=== PATIENT | female | born 1975 | race Caucasian/White ===

== ENCOUNTER 2016-06-23 12:12 | Emergency (ER) | payer BC ==
[2016-06-23] MEDS ORDERED: RX INFO: IV CONTRAST WAS GIVEN 1 EACH MISC MISCELLANE PRN (14:14)
[2016-06-23] MEDS ORDERED: SODIUM CHLORIDE 0.9% 1,000 ML IV ONE (14:14)
--- NOTE | 2016-06-23 14:21 | ED ---
General Adult HPI - General Chief complaint: Abdominal Pain Stated complaint: Abd Pain,Blood in Stool, Dizzy Time Seen by Provider: 06/23/16 14:03 Source: patient, family, RN notes reviewed Mode of arrival: wheelchair Limitations: no limitations - History of Present Illness Initial comments: 40-year-old female presenting for abdominal pain and blood in her stool. Patient states she woke up last night with cramping in her lower abdominal. She states she felt like she had to have a bowel movement, and had a small normal bowel movement at that time. This morning she states she woke up and had return of abdominal cramping. She states she went to the bathroom again and then had a bowel movement with some blood mixed in with it. She then had another bowel movement with a significant amount of bright red blood. She states she's had several other short episodes of lower abdominal cramping since this morning. She has had 2 prior C-sections and partial hysterectomy with one ovary left. She also had lysis of adhesions during her hysterectomy. She denies history of small bowel obstruction. She states she's had some nausea associated but no vomiting. She denies any fevers or chills. She denies any chest pain or shortness of breath. - Related Data Home Medications Medication Instructions Recorded Confirmed Triamterene-Hctz 37.5-25Mg 1 tab PO DAILY 09/13/15 06/23/16 [Maxzide 37.5-25] Citalopram Hydrobromide [CeleXA] 20 mg PO DAILY 06/23/16 06/23/16 Doxycycline Hyclate [Targadox] 50 mg PO BID 06/23/16 06/23/16 Phentermine HCl [Adipex-P] 18.75 mg PO QAM 06/23/16 06/23/16 Previous Rx's Medication Instructions Recorded Dicyclomine [Bentyl] 20 mg PO QID PRN #16 tablet 06/23/16 Allergies Allergy/AdvReac Type Severity Reaction Status Date / Time azithromycin AdvReac Flushed/Sergo Verified 06/23/16 14:03 nt Review of Systems ROS Statement: Those systems with pertinent positive or pertinent negative responses have been documented in the HPI. ROS Other: All systems not noted in ROS Statement are negative. Past Medical History Past Medical History: Hypertension Additional Past Medical History / Comment(s): childhood seizures History of Any Multi-Drug Resistant Organisms: None Reported Past Surgical History: Section, Hysterectomy, Tubal Ligation Past Psychological History: No Psychological Hx Reported Smoking Status: Never smoker Past Alcohol Use History: None Reported Past Drug Use History: None Reported General Exam - General Exam Comments Initial Comments: General: Awake and Alert. No acute distress. Does not appear acutely ill. Obese. Eyes: MARY, EOM intact. No nystagmus. No scleral icterus. HENT: Atraumatic, normocephalic. Mucous membranes moist. Trachea midline. Neck: The neck is supple, there is no tenderness or JVD. Cardiovascular: Regular rate and rhythm. No murmur, rub, or gallop is appreciated. Distal pulses intact. Respiratory: Lungs are clear to auscultation bilaterally. No wheezes, rales, rhonchi. No respiratory distress. Gastrointestinal: Soft, mild lower abdominal tenderness. No rebound or guarding. Non-distended. No masses or organomegaly noted. No CVA tenderness. Genitourinary: External rectal exam performed without evidence of fissure or hemorrhoid. There is no gross blood. Nurse Rosa Isela present for exam. Musculoskeletal: No tenderness. Normal ROM. No gross deformity. No strength deficits. Neurological: A&Ox3. CN II-XII grossly intact, There are no obvious motor or sensory deficits. Coordination appears grossly intact. Speech is normal. Skin: Skin is warm and dry and no rashes or lesions are noted. Psychiatric: Cooperative, appropriate mood & affect, normal judgment. Limitations: no limitations Course Vital Signs 06/23/16 12:15 Temperature 98.1 F Pulse Rate 84 Respiratory 20 Rate Blood Pressure 132/82 O2 Sat by Pulse 99 Oximetry Medical Decision Making - Medical Decision Making 40-year-old female presenting for abdominal pain and bright red blood per rectum. No active pain or symptoms on initial examination. Declines pain medications at this time. CT abdomen and pelvis with left ovarian cysts and hepatic cyst noted. No acute process otherwise. Lab work with stable CBC, stable BMP. LFTs within normal limits. Lipase negative. UA without evidence of infection. Patient reevaluated, remained stable. Updated on results and imaging. Discussed likely benign hepatic cyst and follow-up with PCP for further imaging such as ultrasound. Discussed presence of her left ovary and evidence of cysts. Discussed this as possible cause of her symptoms today. Patient was offered ultrasound for further evaluation but declines. Discussed lower suspicion of ovarian torsion at this time. Patient with no active symptoms during her course in the emergency room. Rx for Bentyl provided in the event of return of symptoms. Discussed bright red blood per rectum and close follow- up with PCP and GI, referral provided. Discussed further outpatient management and need for colonoscopy. Discussed concerning signs symptoms for immediate return to the ED. Patient is agreeable with plan and discharge home. - Lab Data Result diagrams: 06/23/16 13:50 06/23/16 13:50 Lab Results 06/23/16 06/23/16 06/23/16 Range/Units 13:50 13:50 13:50 WBC 8.6 (3.8-10.6) k/uL RBC 5.33 (3.80-5.40) m/uL Hgb 15.8 (11.4-16.0) gm/dL Hct 45.3 (34.0-46.0) % MCV 85.0 (80.0-100.0) fL MCH 29.6 (25.0-35.0) pg MCHC 34.8 (31.0-37.0) g/dL RDW 12.5 (11.5-15.5) % Plt Count 257 (150-450) k/uL Neutrophils % 67 % Lymphocytes % 24 % Monocytes % 6 % Eosinophils % 2 % Basophils % 1 % Neutrophils # 5.7 (1.3-7.7) k/uL Lymphocytes # 2.0 (1.0-4.8) k/uL Monocytes # 0.5 (0-1.0) k/uL Eosinophils # 0.2 (0-0.7) k/uL Basophils # 0.1 (0-0.2) k/uL Sodium 139 (137-145) mmol/L Potassium 4.5 (3.5-5.1) mmol/L Chloride 103 (98-107) mmol/L Carbon Dioxide 24 (22-30) mmol/L Anion Gap 12 mmol/L BUN 17 (7-17) mg/dL Creatinine 0.80 (0.52-1.04) mg/dL Est GFR (MDRD) Af Amer >60 (>60 ml/min/1.73 sqM) Est GFR (MDRD) Non-Af >60 (>60 ml/min/1.73 sqM) Glucose 88 (74-99) mg/dL Calcium 10.3 H (8.4-10.2) mg/dL Magnesium 2.0 (1.6-2.3) mg/dL Total Bilirubin 0.5 (0.2-1.3) mg/dL AST 22 (14-36) U/L ALT 39 (9-52) U/L Alkaline Phosphatase 95 (38-126) U/L Total Protein 7.3 (6.3-8.2) g/dL Albumin 4.5 (3.5-5.0) g/dL Lipase 205 (23-300) U/L Urine Color Yellow Urine Appearance Clear (Clear) Urine pH 6.0 (5.0-8.0) Ur Specific [place] 1.013 (1.001-1.035) Urine Protein Negative (Negative) Urine Glucose (UA) Negative (Negative) Urine Ketones Negative (Negative) Urine Blood Negative (Negative) Urine Nitrite Negative (Negative) Urine Bilirubin Negative (Negative) Urine Urobilinogen <2.0 (<2.0) mg/dL Ur Leukocyte Esterase Negative (Negative) - Radiology Data Radiology results: report reviewed, image reviewed Disposition Clinical Impression: Nonspecific abdominal pain, Ovarian cyst, Rectal bleeding Disposition: HOME SELF-CARE Condition: Stable Instructions: Ovarian Cyst (ED), Rectal Bleeding (ED), Abdominal Pain (ED) Prescriptions: Dicyclomine [Bentyl] 20 mg PO QID PRN #16 tablet PRN Reason: abdominal pain Referrals: Janice Giraldo DO [Primary Care Provider] - 1-2 days Tez Bowling MD [STAFF PHYSICIAN] - 1-2 days Time of Disposition: 15:44
[2016-06-23 14:31] LABS: Appearance,Urine Clear (Clear); Bilirubin,Urine Negative (Negative); Glucose,Urine (UA) Negative (Negative); Ketones,Urine Negative (Negative); Leukocyte Esterase,Urine Negative (Negative); Nitrite,Urine Negative (Negative); Protein,Urine Negative (Negative); Specific Gravity,Urine 1.013 (1.001-1.035); UA Billing (MACRO vs. MICRO) CHEM; Urobilinogen,Urine <2.0 mg/dL (<2.0)
[2016-06-23 14:32] LABS: Basophils # (A) 0.1 k/uL (0-0.2); Basophils % (A) 1 %; CH 29.5; CHCM 34.9; Eosinophils # (A) 0.2 k/uL (0-0.7); Eosinophils % (A) 2 %; HCT 45.3 % (34.0-46.0); HDW 2.73; HGB 15.8 gm/dL (11.4-16.0); Luc # (Auto) 0.11; Luc % (Auto) 1; Lymphocytes % (A) 24 %; MCH 29.6 pg (25.0-35.0); MCHC 34.8 g/dL (31.0-37.0); Mean Platelet Volume 7.5; Monocytes # (A) 0.5 k/uL (0-1.0); Monocytes % (A) 6 %; Neutrophils # (A) 5.7 k/uL (1.3-7.7); Neutrophils % (A) 67 %; RBC 5.33 m/uL (3.80-5.40); RDW 12.5 % (11.5-15.5); WBC 8.6 k/uL (3.8-10.6); WBC (Perox) 7.97
[2016-06-23 14:43] LABS: ALT 39 U/L (9-52); AST 22 U/L (14-36); Alkaline Phosphatase 95 U/L (38-126); Anion Gap 12 mmol/L; Blood Urea Nitrogen 17 mg/dL (7-17); Calcium 10.3 mg/dL (8.4-10.2); Carbon Dioxide 24 mmol/L (22-30); Chloride 103 mmol/L (98-107); Glucose 88 mg/dL (74-99); Non-African American GFR(MDRD) >60 (>60 ml/min/1.73 sqM); Potassium 4.5 mmol/L (3.5-5.1); Sodium 139 mmol/L (137-145); Total Bilirubin 0.5 mg/dL (0.2-1.3); Total Protein 7.3 g/dL (6.3-8.2)
--- NOTE | 2016-06-23 15:12 | CT ---
EXAMINATION TYPE: CT abdomen pelvis w con DATE OF EXAM: 06/23/2016 3:01 PM COMPARISON: 09/13/2015 INDICATION: Pain, cramping DLP: 966.5 mGycm, Automated exposure control for dose reduction was used. CONTRAST: 100 mL of Omnipaque 300. Study performed without Oral Contrast TECHNIQUE: Axial images were obtained from above the diaphragm to the pubic rami in the axial plane a t 5 mm thick sections. Reconstructed images are reviewed on the computer in the coronal plane. FINDINGS: Limited CT sections are obtained the lung bases. The lung bases are clear. CT ABDOMEN: Liver: 0.5 cm hypodensities within the medial right lobe liver, too small to classify may be a small hepatic cyst. Consider evaluation with ultrasound. Spleen: Normal Pancreas: Normal Adrenal glands: The adrenal glands are normal. Gallbladder: Normal Kidneys: No masses are evident. No hydronephrosis is present. No cysts are present. Delayed images were obtained through the kidneys, which remain unremarkable. Aorta: Normal Inferior vena cava: Normal. CT PELVIS: Loops of bowel within the abdomen and pelvis are normal. There are loops of bowel which are incom pletely distended or lack oral contrast limiting their evaluation. Appendix: Normal as visualized. Urinary bladder: Normal. Genitourinary structures: Adnexal regions appear within normal limits. Some follicles may be in the r egion of the left ovary. Uterus is not identified. Osseous structures: No suspicious lytic or sclerotic lesions. IMPRESSIONS: 1. Possible small hepatic cyst in the right lobe liver. Additional evaluation with ultrasound is rec ommended. This may be a change from 09/13/2015. 2. Complex appearing left adnexa which can have small cysts. Series smaller more complex than the com parison. Pelvic ultrasound can further evaluate this finding.
[2016-06-23 16:00] VITALS: BP 136/87; PULSE 70; RESP 18; TEMP 98.5
== END 2016-06-23 16:09 | disposition home or self-care (01) ==
LOC: EC 12:12
DX: N83.202 Unspecified ovarian cyst, left side (principal); K76.89 Other specified diseases of liver; K62.5 Hemorrhage of anus and rectum; E66.9 Obesity, unspecified; Z68.30 Body mass index [BMI] 30.0-30.9, adult; Z79.899 Other long term (current) drug therapy; Z88.1 Allergy status to other antibiotic agents; Z90.710 Acquired absence of both cervix and uterus
CPT/HCPCS: 99284; 96360; 36415; 80053; 83690; 83735; 85025; 81003; 74177; Q9967

== ENCOUNTER → 2016-10-22 | Outpatient (CLI) | payer BC ==
--- NOTE | 2016-10-22 23:37 | MR ---
EXAMINATION TYPE: MR ankle RT wo con DATE OF EXAM: 10/22/2016 COMPARISON: NONE HISTORY: Rt ankle sprain x 09 Nov 2015 & July 2016, pain is lateral aspect through arch Standard multiplanar, multisequence MRI departmental protocol Multiplanar, multisequence images of the right ankle were acquired. FINDINGS: The collateral ligaments are intact. There is a small ankle joint effusion. The Achilles te ndon is intact. Plantar fascia is intact. Subtalar joint space is normal. I see no focal bone destruc tion. The medial and lateral flexor tendons of the foot are intact. There is a small Achilles calcaneal spu r. IMPRESSION: Small ankle joint effusion and could relate to minimal synovitis.
== END | disposition home or self-care (01) ==
LOC: RADMRIMAIN 19:07
PROVIDERS: ATTEND Nurse Practitioner
DX: M25.471 Effusion, right ankle (principal)

== ENCOUNTER 2018-08-12 18:24 | Emergency (ER) | payer BC ==
[2018-08-12] MEDS ORDERED: KETOROLAC 30 MG/ML 1 ML VIAL IVP STA (19:21)
[2018-08-12] MEDS ORDERED: SODIUM CHLORIDE 0.9% 500 ML 500 ML IV STA (19:21)
[2018-08-12] MEDS ORDERED: SODIUM CHLORIDE 0.9% 1,000 ML IV STA (19:21)
[2018-08-12 20:08] LABS: Basophils # (A) 0.1 k/uL (0-0.2); Basophils % (A) 1 %; Eosinophils # (A) 0.4 k/uL (0-0.7); Eosinophils % (A) 4 %; HCT 40.3 % (34.0-46.0); Lymphocytes # (A) 2.2 k/uL (1.0-4.8); Lymphocytes % (A) 26 %; MCH 29.4 pg (25.0-35.0); MCHC 34.8 g/dL (31.0-37.0); MCV 84.5 fL (80.0-100.0); Mean Platelet Volume 6.7; Monocytes # (A) 0.3 k/uL (0-1.0); Monocytes % (A) 4 %; Neutrophils # (A) 5.4 k/uL (1.3-7.7); Neutrophils % (A) 64 %; Platelet Count 269 k/uL (150-450); RBC 4.77 m/uL (3.80-5.40); RDW 13.2 % (11.5-15.5); WBC 8.5 k/uL (3.8-10.6)
[2018-08-12 20:12] LABS: Appearance,Urine Cloudy (Clear); Bilirubin,Urine Negative (Negative); Blood,Urine Negative (Negative); Color,Urine Light Yellow; Glucose,Urine (UA) Negative (Negative); Ketones,Urine Negative (Negative); Leukocyte Esterase,Urine Negative (Negative); Mucus,Urine Rare /hpf; Nitrite,Urine Negative (Negative); PH, Urine 6.5 (5.0-8.0); Protein,Urine Negative (Negative); Specific Gravity,Urine 1.014 (1.001-1.035); Squamous Epithelial Cell,Urine 8 /hpf (0-4); Urobilinogen,Urine <2.0 mg/dL (<2.0); WBC,Urine 1 /hpf (0-5)
[2018-08-12 20:19] LABS: ALT 17 U/L (9-52); AST 23 U/L (14-36); African American GFR (CKD) >90 (>60 ml/min/1.73 sqM); Albumin 3.9 g/dL (3.5-5.0); Alkaline Phosphatase 108 U/L (38-126); Amylase 57 U/L (30-110); Anion Gap 8 mmol/L; Blood Urea Nitrogen 14 mg/dL (7-17); Calcium 9.4 mg/dL (8.4-10.2); Carbon Dioxide 28 mmol/L (22-30); Chloride 100 mmol/L (98-107); Glucose 129 mg/dL (74-99); Lipase 182 U/L (23-300); Sodium 136 mmol/L (137-145); Total Bilirubin 0.4 mg/dL (0.2-1.3); Total Protein 6.5 g/dL (6.3-8.2)
--- NOTE | 2018-08-12 20:21 | CT ---
EXAMINATION TYPE: CT abdomen pelvis wo con DATE OF EXAM: 08/12/2018 COMPARISON: 06/23/2016 HISTORY: right flank pain. hx of stones. CT DLP: 952.4 mGycm Automated exposure control for dose reduction was used. TECHNIQUE: Helical acquisition of images was performed from the lung bases through the pelvis. FINDINGS: Lung bases are clear. There is no pleural effusion. Heart size is normal. There is no pericardial eff usion. Stomach appears normal. Liver spleen pancreas appear normal. Bile ducts are not dilated. There is 1.5 cm single calcified gallstone. There is no adrenal mass. Kidneys show satisfactory contrast opacification. There is no hydronephrosi s. There is no retroperitoneal adenopathy. Bladder distends smoothly. There is no inguinal hernia. Th ere is no free fluid in the pelvis. Uterus is anteverted. There is no evidence of a pelvic mass. Appendix appears normal. There is no mesenteric edema. There is no ascites or free air. There is smal l umbilical hernia that contains fat. There is no evidence of a bowel obstruction. Lumbar vertebra [place] ve normal spacing and alignment. IMPRESSION: THERE IS A SINGLE CALCIFIED GALLSTONE THAT IS A CHANGE COMPARED TO OLD EXAM. OTHERWISE NEGATIVE EXAM. NO EVIDENCE OF RENAL STONE OR OBSTRUCTION. NORMAL APPENDIX.
[2018-08-12 20:26] LABS: Potassium 3.5 mmol/L (3.5-5.1)
--- NOTE | 2018-08-12 20:35 | ED ---
Abdominal Pain HPI - General Chief Complaint: Abdominal Pain Stated Complaint: Kidney Stone Time Seen by Provider: 08/12/18 19:02 Source: patient Mode of arrival: ambulatory Limitations: no limitations - History of Present Illness Initial Comments: 42-year-old female patient presents to the emergency department today for evaluation of right flank pain. Patient states that starting last Tuesday she developed pain to the right flank that is sharp in nature and radiating around to the right lower quadrant abdomen. Patient states that she has had kidney stones before and this pain felt similar. She did see her primary care physician on Tuesday was diagnosed with kidney stone when her urine showed red blood cells, she was given Flomax. Patient states that the pain has persisted throughout the week. States that today the pain became worse and change to an intense pressure type pain. She denies any nausea or vomiting with this. Denies any fever or chills. States that she has had decreased urine output today. States she has been taking ibuprofen at home for pain relief. Only abdominal surgery was hysterectomy. Patient denies any recent rash, shortness breath, chest pain, diarrhea, constipation, back pain, numbness, tingling, dizziness, weakness, headache, visual changes, or any other complaints. - Related Data Home Medications Medication Instructions Recorded Confirmed Citalopram Hydrobromide [CeleXA] 20 mg PO DAILY 06/23/16 08/12/18 Tamsulosin [Flomax] 0.4 mg PO DAILY 08/12/18 08/12/18 Triamterene-Hctz 37.5-25Mg 1 cap PO DAILY 08/12/18 08/12/18 [Dyazide 37.5-25 Capsule] cycloSPORINE 0.05% OPHTH SOLN 1 drop BOTH EYES BID 08/12/18 08/12/18 [Restasis] Previous Rx's Medication Instructions Recorded Ibuprofen 800 mg PO TID PRN #30 tablet 08/12/18 Allergies Allergy/AdvReac Type Severity Reaction Status Date / Time azithromycin AdvReac Flushed/Sergo Verified 08/12/18 20:26 nt Review of Systems ROS Statement: Those systems with pertinent positive or pertinent negative responses have been documented in the HPI. ROS Other: All systems not noted in ROS Statement are negative. Past Medical History Past Medical History: Fibromyalgia, Hyperlipidemia, Hypertension Additional Past Medical History / Comment(s): childhood seizures, BILATERAL OPTIC NEUROPATHY,BLOOD IN STOOL,,KIDNEY STONE History of Any Multi-Drug Resistant Organisms: None Reported Past Surgical History: Section, Hysterectomy, Tubal Ligation Additional Past Surgical History / Comment(s): C SECTION X 2 , LYSIS OF ADHE SIONS Past Anesthesia/Blood Transfusion Reactions: No Reported Reaction Past Psychological History: Anxiety Smoking Status: Never smoker Past Alcohol Use History: None Reported Past Drug Use History: None Reported - Past Family History Father Family Medical History: Deep Vein Thrombosis (DVT) General Exam Limitations: no limitations General appearance: alert, in no apparent distress, other (Physical well- developed, well-nourished adult female patient in no acute distress. Vital signs upon presentation are temperature 98.6F, pulse 85, respirations 18, blood pressure 126/86, pulse ox 98% on room air.) Eye exam: Present: normal appearance, PERRL, EOMI. Absent: scleral icterus, conjunctival injection, periorbital swelling ENT exam: Present: normal exam, normal oropharynx, mucous membranes moist Respiratory exam: Present: normal lung sounds bilaterally. Absent: respiratory distress, wheezes, rales, rhonchi, stridor Cardiovascular Exam: Present: regular rate, normal rhythm, normal heart sounds. Absent: systolic murmur, diastolic murmur, rubs, gallop, clicks GI/Abdominal exam: Present: soft, normal bowel sounds. Absent: distended, tenderness, guarding, rebound, rigid Back exam: Present: normal inspection, CVA tenderness (R). Absent: CVA tenderness (L) Neurological exam: Present: alert, oriented X3, CN II-XII intact Psychiatric exam: Present: normal affect, normal mood Skin exam: Present: warm, dry, intact, normal color. Absent: rash Course Vital Signs 08/12/18 08/12/18 18:42 21:30 Temperature 98.6 F 97.6 F Pulse Rate 85 81 Respiratory 18 16 Rate Blood Pressure 126/86 123/74 O2 Sat by Pulse 98 98 Oximetry Medical Decision Making - Medical Decision Making 42-year-old female patient presented to the emergency department today for evaluation of right flank pain and right-sided abdominal pain. Physical examination reveals mild right CVA tenderness. No abdominal tenderness. She is not vomiting and is afebrile. Labs reviewed and are unremarkable. Urinalysis shows no evidence of infection or hematuria. CT abdomen and pelvis was obtained to evaluate for kidney stone, showed no evidence of stones or hydronephrosis. She did have one calcified gallstone which could be contributing to her symptoms. To be discharged at this time to follow-up with the general surgeon for further evaluation. Return parameters were discussed in detail. She verbalizes understanding and agrees with this plan. - Lab Data Result diagrams: 08/12/18 19:57 08/12/18 19:57 Lab Results 08/12/18 08/12/18 08/12/18 Range/Units 19:57 19:57 19:57 WBC 8.5 (3.8-10.6) k/uL RBC 4.77 (3.80-5.40) m/uL Hgb 14.0 (11.4-16.0) gm/dL Hct 40.3 (34.0-46.0) % MCV 84.5 (80.0-100.0) fL MCH 29.4 (25.0-35.0) pg MCHC 34.8 (31.0-37.0) g/dL RDW 13.2 (11.5-15.5) % Plt Count 269 (150-450) k/uL Neutrophils % 64 % Lymphocytes % 26 % Monocytes % 4 % Eosinophils % 4 % Basophils % 1 % Neutrophils # 5.4 (1.3-7.7) k/uL Lymphocytes # 2.2 (1.0-4.8) k/uL Monocytes # 0.3 (0-1.0) k/uL Eosinophils # 0.4 (0-0.7) k/uL Basophils # 0.1 (0-0.2) k/uL Sodium 136 L (137-145) mmol/L Potassium 3.5 (3.5-5.1) mmol/L Chloride 100 (98-107) mmol/L Carbon Dioxide 28 (22-30) mmol/L Anion Gap 8 mmol/L BUN 14 (7-17) mg/dL Creatinine 0.66 (0.52-1.04) mg/dL Est GFR (CKD-EPI)AfAm >90 (>60 ml/min/1.73 sqM) Est GFR (CKD-EPI)NonAf >90 (>60 ml/min/1.73 sqM) Glucose 129 H (74-99) mg/dL Calcium 9.4 (8.4-10.2) mg/dL Total Bilirubin 0.4 (0.2-1.3) mg/dL AST 23 (14-36) U/L ALT 17 (9-52) U/L Alkaline Phosphatase 108 (38-126) U/L Total Protein 6.5 (6.3-8.2) g/dL Albumin 3.9 (3.5-5.0) g/dL Amylase 57 (30-110) U/L Lipase 182 (23-300) U/L Urine Color Light Yellow Urine Appearance Cloudy H (Clear) Urine pH 6.5 (5.0-8.0) Ur Specific [place] 1.014 (1.001-1.035) Urine Protein Negative (Negative) Urine Glucose (UA) Negative (Negative) Urine Ketones Negative (Negative) Urine Blood Negative (Negative) Urine Nitrite Negative (Negative) Urine Bilirubin Negative (Negative) Urine Urobilinogen <2.0 (<2.0) mg/dL Ur Leukocyte Esterase Negative (Negative) Urine WBC 1 (0-5) /hpf Ur Squamous Epith Cells 8 H (0-4) /hpf Urine Mucus Rare H (None) /hpf - Radiology Data Radiology results: report reviewed, image reviewed CT abdomen and pelvis without contrast is obtained. Report reviewed in its entirety. Impression by Dr. Zimmerman shows a single calcified gallstone that is a change compared to old exam. Otherwise negative exam. No evidence of renal stone or obstruction. Normal appendix. Disposition Clinical Impression: Abdominal pain, Gallstone Disposition: HOME SELF-CARE Condition: Good Instructions (If sedation given, give patient instructions): Biliary Colic (ED), Gallstones (ED), Abdominal Pain (ED) Additional Instructions: Follow-up with surgeon for further evaluation. Avoid fatty or greasy foods. Return to the emergency department immediately for any new, worsening, or concerning symptoms. Prescriptions: Ibuprofen 800 mg PO TID PRN #30 tablet PRN Reason: Pain Is patient prescribed a controlled substance at d/c from ED?: No Referrals: Janice Giraldo DO [Primary Care Provider] - 1-2 days Fatoumata Allan DO [Doctor of Osteopathic Medicine] - 1-2 days Time of Disposition: 21:20
[2018-08-12 21:38] VITALS: BP 123/74; PULSE 81; RESP 16; TEMP 97.6
== END 2018-08-12 21:30 | disposition home or self-care (01) ==
LOC: EC 18:24
DX: K80.20 Calculus of gallbladder without cholecystitis without obstruction (principal); F41.9 Anxiety disorder, unspecified; I10 Essential (primary) hypertension; Z79.899 Other long term (current) drug therapy; Z88.1 Allergy status to other antibiotic agents
CPT/HCPCS: 36415; 80053; 82150; 83690; 85025; 81001; 74176; 99284; 96374; 96361; J1885

== ENCOUNTER 2019-04-02 04:01 | Emergency (ER) | payer BC ==
[2019-04-02 04:11] VITALS: BP 135/82; PULSE 82; RESP 18; TEMP 97.6
[2019-04-02] MEDS ORDERED: ACYCLOVIR 800 MG TAB PO STA (04:37)
--- NOTE | 2019-04-02 04:46 | ED ---
General Adult HPI - General Chief complaint: Allergic Reaction Stated complaint: Insect Bite/Allergic Reaction Time Seen by Provider: 04/02/19 04:05 Source: patient Mode of arrival: ambulatory Limitations: physical limitation - History of Present Illness Initial comments: The patient is a 43 year old female who presents to emergency room with reported lesions on her bilateral hands. She states she first saw him yesterday morning when she woke up. They were pinpoint in nature with surrounding swelling. She states that they're extremely itchy. She also has a numbness and tingling sensation in her hands. She went to an urgent care where they told her to use Benadryl cream and take Benadryl. States she took some at 8:30 last night. Denies any insect bites. No new exposures to foods, medicines, environmental exposures. She is a schoolteacher. Denies any airway compromise or chest pain. No history of similar in the past. There are no alleviating, precipitating or modifying factors - Related Data Home Medications Medication Instructions Recorded Confirmed Citalopram Hydrobromide [CeleXA] 20 mg PO DAILY 06/23/16 04/03/19 Triamterene-Hctz 37.5-25Mg 1 cap PO DAILY 08/12/18 04/03/19 [Dyazide 37.5-25 Capsule] cycloSPORINE 0.05% OPHTH SOLN 1 drop BOTH EYES BID 08/12/18 04/03/19 [Restasis] Calcium/Magnesium/Zinc 1 tab PO DAILY 04/03/19 04/03/19 [Kxcimzz-Mqrxzoaqr-Znha Tablet] Cetirizine HCl 10 mg PO DAILY 04/03/19 04/03/19 Fluticasone Nasal [place] [Flonase 1 spray EA NOSTRIL DAILY PRN 04/03/19 04/03/19 Nasal [place]] Ibuprofen [Motrin Ib] 400 mg PO Q6H PRN 04/03/19 04/03/19 Previous Rx's Medication Instructions Recorded predniSONE 50 mg PO DAILY #5 tablet 04/02/19 Acyclovir [Zovirax] 400 mg PO TID #30 ml 04/04/19 Betamethasone Dipropionate 1 applic TOPICAL TID #20 gm 04/04/19 [Betamethasone Dipropionate 0.05%] Famotidine [Pepcid] 20 mg PO BID #30 tablet 04/04/19 Allergies Allergy/AdvReac Type Severity Reaction Status Date / Time amoxicillin [From Augmentin] Allergy Rash/Hives Verified 04/03/19 17:31 clavulanic acid Allergy Rash/Hives Verified 04/03/19 17:31 [From Augmentin] Pepper Allergy Rash/Hives Verified 04/03/19 17:43 azithromycin AdvReac Flushed/Sergo Verified 04/03/19 17:31 nt Review of Systems ROS Statement: Those systems with pertinent positive or pertinent negative responses have been documented in the HPI. ROS Other: All systems not noted in ROS Statement are negative. Past Medical History Past Medical History: Fibromyalgia, Hyperlipidemia, Hypertension Additional Past Medical History / Comment(s): childhood seizures, BILATERAL OPTIC NEUROPATHY,BLOOD IN STOOL,,KIDNEY STONE History of Any Multi-Drug Resistant Organisms: None Reported Past Surgical History: Section, Cholecystectomy, Hysterectomy, Tubal Ligation Additional Past Surgical History / Comment(s): C SECTION X 2 , LYSIS OF ADHESIONS Past Anesthesia/Blood Transfusion Reactions: No Reported Reaction Past Psychological History: Anxiety Smoking Status: Never smoker Past Alcohol Use History: None Reported Past Drug Use History: None Reported - Past Family History Father Family Medical History: Deep Vein Thrombosis (DVT) General Exam Limitations: no limitations General appearance: alert, in no apparent distress Head exam: Present: atraumatic, normocephalic, normal inspection ENT exam: Present: normal exam, mucous membranes moist Neck exam: Present: normal inspection, other (no stridor). Absent: tenderness, meningismus, lymphadenopathy Extremities exam: Present: other (multiple raised, flesh colored papules located on all 5 fingers of the right hand. There is surronding soft tissue swelling and mild redness. multiple clustered lesions which extend onto the bilateral dorsal hands. R>L) Course Vital Signs 04/02/19 04:05 Temperature 97.6 F Pulse Rate 82 Respiratory 18 Rate Blood Pressure 135/82 O2 Sat by Pulse 97 Oximetry Medical Decision Making - Medical Decision Making Upon arrival the patient was placed into room 7. A thorough history and physical exam was performed. The patient does present with blistering lesions to multiple fingers consistent with herpetic annetta. I did recommend treatment with acyclovir cream and tablet. She was given a dose of acyclovir in the emergency department. She is informed that the rash is highly contagious. She needs to follow up with her primary care doctor in 2-4 days. Return to the emergency room for any new or worsening symptoms. The patient was discharged home in stable condition Disposition Clinical Impression: Herpetic annetta Disposition: HOME SELF-CARE Condition: Stable Additional Instructions: You have hepatic annetta. Take the medication as directed and use the cream. Return to the emergency room for any new or worsening symptoms. Follow up with your primary care doctor in 2-4 days Is patient prescribed a controlled substance at d/c from ED?: No Referrals: Janice Giraldo DO [Primary Care Provider] - 1-2 days Time of Disposition: 04:45
== END 2019-04-02 05:00 | disposition home or self-care (01) ==
LOC: EC 04:01
DX: B00.89 Other herpesviral infection (principal); F41.9 Anxiety disorder, unspecified; M79.7 Fibromyalgia; I10 Essential (primary) hypertension; H46.9 Unspecified optic neuritis; Z79.899 Other long term (current) drug therapy; Z88.1 Allergy status to other antibiotic agents; Z88.0 Allergy status to penicillin
CPT/HCPCS: 99283

== ENCOUNTER 2019-04-02 15:36 | Emergency (ER) | payer BC ==
--- NOTE | 2019-04-02 16:06 | ED ---
General Adult HPI - General Chief complaint: Skin/Abscess/Foreign Body Stated complaint: rash-revisit Time Seen by Provider: 04/02/19 15:53 Source: patient, RN notes reviewed, old records reviewed Mode of arrival: ambulatory Limitations: no limitations - History of Present Illness Initial comments: This patient's a pleasant 43-year-old female who presents the emergency department today for evaluation for diffuse rash, swelling over her hands as well as some areas of rash over the back of her scalp and now developing atrophy. Patient was seen earlier in the emergency department stay and was diagnosed with herpetic annetta on the right index finger. Patient reports that she was prescribed acyclovir and acyclovir cream. Patient reports after putting acyclovir cream on started developing burning sensation and removed it. Patient states that since earlier this morning she's now developed some circular target- like lesions over her hands, elbows and some areas are not developing on the back of her scalp and feet. She denies any fevers or chills. She also relates that she has been treated for sinusitis with Augmentin and finish the Ceftin weeks ago. 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 - Related Data Home Medications Medication Instructions Recorded Confirmed Citalopram Hydrobromide [CeleXA] 20 mg PO DAILY 06/23/16 04/02/19 Triamterene-Hctz 37.5-25Mg 1 cap PO DAILY 08/12/18 04/02/19 [Dyazide 37.5-25 Capsule] cycloSPORINE 0.05% OPHTH SOLN 1 drop BOTH EYES BID 08/12/18 04/02/19 [Restasis] Previous Rx's Medication Instructions Recorded Acyclovir [Zovirax] 1 applic TOPICAL QID #60 gm 04/02/19 Acyclovir [Zovirax] 800 mg PO BID #10 tab 04/02/19 diphenhydrAMINE [Benadryl] 25 mg PO QID #30 capsule 04/02/19 predniSONE 50 mg PO DAILY #5 tablet 04/02/19 Allergies Allergy/AdvReac Type Severity Reaction Status Date / Time azithromycin AdvReac Flushed/Sergo Verified 04/02/19 15:41 nt Review of Systems ROS Statement: Those systems with pertinent positive or pertinent negative responses have been documented in the HPI. ROS Other: All systems not noted in ROS Statement are negative. Past Medical History Past Medical History: Hyperlipidemia, Hypertension Additional Past Medical History / Comment(s): childhood seizures, BILATERAL OPTIC NEUROPATHY,BLOOD IN STOOL,,KIDNEY STONE History of Any Multi-Drug Resistant Organisms: None Reported Past Surgical History: Section, Cholecystectomy, Hysterectomy, Tubal Ligation Additional Past Surgical History / Comment(s): C SECTION X 2 , LYSIS OF ADHESIONS Past Anesthesia/Blood Transfusion Reactions: No Reported Reaction Past Psychological History: Anxiety Smoking Status: Never smoker Past Alcohol Use History: None Reported Past Drug Use History: None Reported - Past Family History Father Family Medical History: Deep Vein Thrombosis (DVT) General Exam - General Exam Comments Initial Comments: This patient's an alert and oriented 43-year-old female. Patient appears in no acute distress. Limitations: no limitations General appearance: alert, in no apparent distress Head exam: Present: atraumatic, normocephalic, normal inspection Eye exam: Present: normal appearance, PERRL, EOMI. Absent: scleral icterus, conjunctival injection, periorbital swelling ENT exam: Present: normal exam, mucous membranes moist Neck exam: Present: normal inspection. Absent: tenderness, meningismus, l ymphadenopathy Respiratory exam: Present: normal lung sounds bilaterally. Absent: respiratory distress, wheezes, rales, rhonchi, stridor Cardiovascular Exam: Present: regular rate, normal rhythm, normal heart sounds. Absent: systolic murmur, diastolic murmur, rubs, gallop, clicks GI/Abdominal exam: Present: soft, normal bowel sounds. Absent: distended, tenderness, guarding, rebound, rigid Extremities exam: Present: normal inspection, full ROM, normal capillary refill, other (Patient has evidence of erythematous target-like lesions over bilateral elbows, dorsum and palmar aspect of the hands. Both hands are very swollen at this time and pain with range of motion. Patient's right second digit, third digit there is evidence of purpuric-like bulla over the DIP and PIP. Patient also has a area of erythema and circular-like lesion over the right pinky toe.). Absent: tenderness, pedal edema, joint swelling, calf tenderness Back exam: Present: normal inspection Neurological exam: Present: alert, oriented X3, CN II-XII intact Psychiatric exam: Present: normal affect, normal mood Skin exam: Present: warm, dry, intact, normal color. Absent: rash Course Vital Signs 04/02/19 15:36 Temperature 98.0 F Pulse Rate 119 H Respiratory 20 Rate Blood Pressure 136/89 O2 Sat by Pulse 97 Oximetry Medical Decision Making - Medical Decision Making Patient is a 43-year-old female who presents the emergency department today for evaluation with concern forbilateral hand swelling, some swelling over her scalp and feet. Patient reports she was diagnosed with herpetic annetta earlier today. She took acyclovir and a second liter cream. Patient has some purpuric- like bulla over the distal proximal IP joint of the right second digit and third digit and thumb. She has some circular like target lesions which is concerning for erythema multiforme a. With her history of antibiotic use along ago as well as the initial concern for herpetic was low. It is concerning that the erythema multiforme may be related to herpetic annetta HSV infection or possible antibiotic. At this time patient's swelling in the rash and lesions have diminished somewhat after IV Solu-Medrol Pepcid and Benadryl. Patient labs were unremarkable. She does have an appointment tomorrow with dermatology. I discussed the Patient needs to complete this for follow-up and discussed return parameters. All questions answered. Evaluated with Dr. Cosme. - Lab Data Result diagrams: 04/02/19 16:22 04/02/19 16:22 Lab Results 04/02/19 04/02/19 Range/Units 16:22 16:22 WBC 11.9 H (3.8-10.6) k/uL RBC 4.99 (3.80-5.40) m/uL Hgb 14.5 (11.4-16.0) gm/dL Hct 42.1 (34.0-46.0) % MCV 84.3 (80.0-100.0) fL MCH 29.0 (25.0-35.0) pg MCHC 34.4 (31.0-37.0) g/dL RDW 13.7 (11.5-15.5) % Plt Count 288 (150-450) k/uL Neutrophils % 71 % Lymphocytes % 15 % Monocytes % 3 % Eosinophils % 10 % Basophils % 0 % Neutrophils # 8.4 H (1.3-7.7) k/uL Lymphocytes # 1.8 (1.0-4.8) k/uL Monocytes # 0.3 (0-1.0) k/uL Eosinophils # 1.2 H (0-0.7) k/uL Basophils # 0.0 (0-0.2) k/uL Sodium 135 L (137-145) mmol/L Potassium 3.7 (3.5-5.1) mmol/L Chloride 104 (98-107) mmol/L Carbon Dioxide 24 (22-30) mmol/L Anion Gap 7 mmol/L BUN 14 (7-17) mg/dL Creatinine 0.72 (0.52-1.04) mg/dL Est GFR (CKD-EPI)AfAm >90 (>60 ml/min/1.73 sqM) Est GFR (CKD-EPI)NonAf >90 (>60 ml/min/1.73 sqM) Glucose 116 H (74-99) mg/dL Calcium 9.3 (8.4-10.2) mg/dL Total Bilirubin 0.4 (0.2-1.3) mg/dL AST 24 (14-36) U/L ALT 19 (4-34) U/L Alkaline Phosphatase 97 (38-126) U/L Total Protein 6.2 L (6.3-8.2) g/dL Albumin 3.7 (3.5-5.0) g/dL Disposition Clinical Impression: Erythema multiforme Disposition: HOME SELF-CARE Condition: Good Instructions (If sedation given, give patient instructions): Acute Rash (ED) Additional Instructions: Patient advised to starting the steroids tomorrow. Follow-up with your appointment with dermatology. Continue to take the steroids for tomorrow and Benadryl every 4-6 hours. Icing the hands to help with swelling as well. If there is any blisterlike lesions that appear and skin starts to slough off please return promptly to the emergency department. Prescriptions: diphenhydrAMINE [Benadryl] 25 mg PO QID #30 capsule predniSONE 50 mg PO DAILY #5 tablet Is patient prescribed a controlled substance at d/c from ED?: No Referrals: Janice Giraldo DO [Primary Care Provider] - 1-2 days Time of Disposition: 17:35
[2019-04-02] MEDS ORDERED: FAMOTIDINE 20 MG/2 ML VIAL IV STA (16:08)
[2019-04-02] MEDS ORDERED: diphenhydrAMINE 50 MG/ML 1 ML VIAL IVP STA (16:08)
[2019-04-02] MEDS ORDERED: methylPREDNISolone SOD SUCCI 125 MG/2 ML VIAL IV STA (16:08)
[2019-04-02 16:30] LABS: Basophils % (A) 0 %; Eosinophils # (A) 1.2 k/uL (0-0.7); Eosinophils % (A) 10 %; HCT 42.1 % (34.0-46.0); HGB 14.5 gm/dL (11.4-16.0); Lymphocytes # (A) 1.8 k/uL (1.0-4.8); Lymphocytes % (A) 15 %; MCHC 34.4 g/dL (31.0-37.0); MCV 84.3 fL (80.0-100.0); Mean Platelet Volume 7.6; Monocytes # (A) 0.3 k/uL (0-1.0); Monocytes % (A) 3 %; Neutrophils # (A) 8.4 k/uL (1.3-7.7); Neutrophils % (A) 71 %; Platelet Count 288 k/uL (150-450); RBC 4.99 m/uL (3.80-5.40); RDW 13.7 % (11.5-15.5); WBC 11.9 k/uL (3.8-10.6)
[2019-04-02 16:39] LABS: ALT 19 U/L (4-34); AST 24 U/L (14-36); African American GFR (CKD) >90 (>60 ml/min/1.73 sqM); Albumin 3.7 g/dL (3.5-5.0); Alkaline Phosphatase 97 U/L (38-126); Anion Gap 7 mmol/L; Blood Urea Nitrogen 14 mg/dL (7-17); Calcium 9.3 mg/dL (8.4-10.2); Carbon Dioxide 24 mmol/L (22-30); Chloride 104 mmol/L (98-107); Glucose 116 mg/dL (74-99); Non-African American GFR(CKD) >90 (>60 ml/min/1.73 sqM); Potassium 3.7 mmol/L (3.5-5.1); Sodium 135 mmol/L (137-145); Total Bilirubin 0.4 mg/dL (0.2-1.3); Total Protein 6.2 g/dL (6.3-8.2)
[2019-04-02 17:42] VITALS: BP 124/80; PULSE 92; RESP 18; TEMP 99.4
== END 2019-04-02 17:49 | disposition home or self-care (01) ==
LOC: EC 15:36
DX: L51.9 Erythema multiforme, unspecified (principal); I10 Essential (primary) hypertension; H46.9 Unspecified optic neuritis; F41.9 Anxiety disorder, unspecified; Z88.1 Allergy status to other antibiotic agents; Z79.899 Other long term (current) drug therapy
CPT/HCPCS: 36415; 80053; 85025; 99283; 96374; 96375 ×2; J1200; J2930

== ENCOUNTER 2019-04-03 14:11 | Inpatient (IN) | payer BC ==
[2019-04-03] MEDS ORDERED: FAMOTIDINE 20 MG/2 ML VIAL IV STA (14:45)
[2019-04-03] MEDS ORDERED: methylPREDNISolone SOD SUCCI 125 MG/2 ML VIAL IV STA (14:45)
[2019-04-03] MEDS ORDERED: diphenhydrAMINE 50 MG/ML 1 ML VIAL IVP STA (14:45)
[2019-04-03] MEDS ORDERED: SODIUM CHLORIDE 0.9% 1,000 ML IV ONE (14:46)
--- NOTE | 2019-04-03 15:08 | ED ---
General Adult HPI - General Chief complaint: Skin/Abscess/Foreign Body Stated complaint: allergic reaction Time Seen by Provider: 04/03/19 14:31 Source: patient, RN notes reviewed, old records reviewed, Caregiver Mode of arrival: ambulatory Limitations: no limitations - History of Present Illness Initial comments: This patient's a 43-year-old female who presents emergency department today for reevaluation for her rash. Patient was seen earlier today by Dr. Khai MONTES dermatology was diagnosed with erythema multiforme a. Patient reports that they were going to give her a steroid shot however did not want to do so because her blood pressure is elevated. She stated that she then made an appointment to follow-up with her PCP in regards to elevated blood pressure. When her she is going to her PCPs office she noted a lump over her lip and then was told to come to the emergency department for further evaluation. Patient states that she has noticed a decreased swelling in her hands from the past 24 hours. She reports that she's noted more lesions over her lower extremities. - Related Data Home Medications Medication Instructions Recorded Confirmed Citalopram Hydrobromide [CeleXA] 20 mg PO DAILY 06/23/16 04/02/19 Triamterene-Hctz 37.5-25Mg 1 cap PO DAILY 08/12/18 04/02/19 [Dyazide 37.5-25 Capsule] cycloSPORINE 0.05% OPHTH SOLN 1 drop BOTH EYES BID 08/12/18 04/02/19 [Restasis] Previous Rx's Medication Instructions Recorded Acyclovir [Zovirax] 1 applic TOPICAL QID #60 gm 04/02/19 Acyclovir [Zovirax] 800 mg PO BID #10 tab 04/02/19 diphenhydrAMINE [Benadryl] 25 mg PO QID #30 capsule 04/02/19 predniSONE 50 mg PO DAILY #5 tablet 04/02/19 Allergies Allergy/AdvReac Type Severity Reaction Status Date / Time amoxicillin [From Augmentin] Allergy Rash/Hives Verified 04/03/19 14:27 clavulanic acid Allergy Rash/Hives Verified 04/03/19 14:27 [From Augmentin] azithromycin AdvReac Flushed/Sergo Verified 04/02/19 15:41 nt Review of Systems ROS Statement: Those systems with pertinent positive or pertinent negative responses have been documented in the HPI. ROS Other: All systems not noted in ROS Statement are negative. Past Medical History Past Medical History: Hyperlipidemia, Hypertension Additional Past Medical History / Comment(s): childhood seizures, BILATERAL OPTIC NEUROPATHY,BLOOD IN STOOL,,KIDNEY STONE History of Any Multi-Drug Resistant Organisms: None Reported Past Surgical History: Section, Cholecystectomy, Hysterectomy, Tubal Ligation Additional Past Surgical History / Comment(s): C SECTION X 2 , LYSIS OF ADHESIONS Past Anesthesia/Blood Transfusion Reactions: No Reported Reaction Past Psychological History: Anxiety Smoking Status: Never smoker Past Alcohol Use History: None Reported Past Drug Use History: None Reported - Past Family History Father Family Medical History: Deep Vein Thrombosis (DVT) General Exam - General Exam Comments Initial Comments: 43-year-old female. Alert and oriented 3. Limitations: no limitations General appearance: alert, in no apparent distress Head exam: Present: atraumatic, normocephalic, normal inspection Eye exam: Present: normal appearance, PERRL, EOMI. Absent: scleral icterus, conjunctival injection, periorbital swelling ENT exam: Present: normal exam, mucous membranes moist Neck exam: Present: normal inspection. Absent: tenderness, meningismus, lymphadenopathy Respiratory exam: Present: normal lung sounds bilaterally. Absent: respiratory distress, wheezes, rales, rhonchi, stridor Cardiovascular Exam: Present: regular rate, normal rhythm, normal heart sounds. Absent: systolic murmur, diastolic murmur, rubs, gallop, clicks GI/Abdominal exam: Present: soft, normal bowel sounds. Absent: distended, tenderness, guarding, rebound, rigid Extremities exam: Present: normal inspection, full ROM, normal capillary refill. Absent: tenderness, pedal edema, joint swelling, calf tenderness Back exam: Present: normal inspection Neurological exam: Present: alert, oriented X3, CN II-XII intact Psychiatric exam: Present: normal affect, normal mood Skin exam: Present: warm, dry, intact, normal color, rash ( has multiple areas of erythematous target-like lesions over hands, elbows, shins and dorsum of her foot. Patient has evidence of hemorrhagic bulla over the right second and third digit and now has progressed to the left second digit.) Course Vital Signs 04/03/19 04/03/19 14:22 16:02 Temperature 98.4 F Pulse Rate 117 H 95 Respiratory 20 18 Rate Blood Pressure 144/85 129/80 O2 Sat by Pulse 98 98 Oximetry Medical Decision Making - Medical Decision Making Patient is a 43-year-old female who presents emergency room today for reevaluation for her rash. Patient was seen by , diagnosed with erythema multiforme. She is was evaluated by the typewriter operator automatic yesterday. She has more lesions of erythema multiforme over her scalp, ears, hands and feet aguilar. She also has hemorrhagic bulla over her right second and third digit and now once progressed on her left second digit. Patient initially was diagnosed with herpetic annetta. I also discussed the Patient has been having a cough for a few weeks prior. Chest x-ray today shows no pneumonia but currently for bronchitis. This could be related to possible mycoplasma infection versus herpes infection to cause onset of EM. stay also complains of some swelling of her lip. Patient was given IV Solu-Medrol, Pepcid and Benadryl. The Patient at this time appears well, in no acute distress. There is no evidence of significant oral lesions at this time. I discussed the case with Dr. Iraheta who also examined the Patient. At this time we consult the patient's PCP and then Dr. Esparza for admission. Patient is close monitoring to ensure that this is not progressed TEN or SJS. Patient will receive steroids. Discussed possible consults to infectious disease and dermatology. - Lab Data Result diagrams: 04/03/19 15:00 04/03/19 15:00 Lab Results 04/03/19 04/03/19 Range/Units 15:00 15:00 WBC 18.2 H (3.8-10.6) k/uL RBC 4.85 (3.80-5.40) m/uL Hgb 14.3 (11.4-16.0) gm/dL Hct 41.1 (34.0-46.0) % MCV 84.8 (80.0-100.0) fL MCH 29.4 (25.0-35.0) pg MCHC 34.7 (31.0-37.0) g/dL RDW 13.6 (11.5-15.5) % Plt Count 316 (150-450) k/uL Neutrophils % 88 % Lymphocytes % 8 % Monocytes % 2 % Eosinophils % 1 % Basophils % 0 % Neutrophils # 15.9 H (1.3-7.7) k/uL Lymphocytes # 1.5 (1.0-4.8) k/uL Monocytes # 0.4 (0-1.0) k/uL Eosinophils # 0.2 (0-0.7) k/uL Basophils # 0.0 (0-0.2) k/uL Sodium 135 L (137-145) mmol/L Potassium 3.5 (3.5-5.1) mmol/L Chloride 104 (98-107) mmol/L Carbon Dioxide 21 L (22-30) mmol/L Anion Gap 10 mmol/L BUN 20 H (7-17) mg/dL Creatinine 0.70 (0.52-1.04) mg/dL Est GFR (CKD-EPI)AfAm >90 (>60 ml/min/1.73 sqM) Est GFR (CKD-EPI)NonAf >90 (>60 ml/min/1.73 sqM) Glucose 192 H (74-99) mg/dL Calcium 9.5 (8.4-10.2) mg/dL - Radiology Data Radiology results: report reviewed Chest x-ray shows correlate for bronchitis reactive airway disease. Disposition Clinical Impression: Erythema multiforme Disposition: ADMITTED IP TO THIS HOSP Condition: Stable Is patient prescribed a controlled substance at d/c from ED?: No Referrals: Janice Giraldo DO [Primary Care Provider] - 1-2 days Time of Disposition: 16:48
[2019-04-03 15:19] LABS: Basophils % (A) 0 %; Eosinophils # (A) 0.2 k/uL (0-0.7); Eosinophils % (A) 1 %; HCT 41.1 % (34.0-46.0); HGB 14.3 gm/dL (11.4-16.0); Lymphocytes # (A) 1.5 k/uL (1.0-4.8); Lymphocytes % (A) 8 %; MCH 29.4 pg (25.0-35.0); MCHC 34.7 g/dL (31.0-37.0); MCV 84.8 fL (80.0-100.0); Monocytes # (A) 0.4 k/uL (0-1.0); Monocytes % (A) 2 %; Neutrophils # (A) 15.9 k/uL (1.3-7.7); Neutrophils % (A) 88 %; Platelet Count 316 k/uL (150-450); RBC 4.85 m/uL (3.80-5.40); RDW 13.6 % (11.5-15.5); WBC 18.2 k/uL (3.8-10.6)
--- NOTE | 2019-04-03 15:31 | XR ---
EXAMINATION TYPE: XR chest 2V DATE OF EXAM: 04/03/2019 COMPARISON: NONE HISTORY: Cough TECHNIQUE: Frontal and lateral views of the chest are obtained. FINDINGS: There is no focal air space opacity, pleural effusion, or pneumothorax seen. The cardiac silhouette size is within normal limits. The osseous structures are intact and there is a spinal cu rvature there is bronchial wall thickening.. IMPRESSION: Correlate for bronchitis, reactive airways disease, follow-up as indicated.
[2019-04-03 15:32] LABS: African American GFR (CKD) >90 (>60 ml/min/1.73 sqM); Anion Gap 10 mmol/L; Blood Urea Nitrogen 20 mg/dL (7-17); Calcium 9.5 mg/dL (8.4-10.2); Carbon Dioxide 21 mmol/L (22-30); Chloride 104 mmol/L (98-107); Glucose 192 mg/dL (74-99); Non-African American GFR(CKD) >90 (>60 ml/min/1.73 sqM); Potassium 3.5 mmol/L (3.5-5.1); Sodium 135 mmol/L (137-145)
[2019-04-03] MEDS ORDERED: ACETAMINOPHEN TAB 500 MG TAB PO STA (16:44)
[2019-04-03] MEDS ORDERED: ONDANSETRON 4 MG/2 ML VIAL IVP PRN (16:48)
[2019-04-03] MEDS ORDERED: NALOXONE 0.4 MG/ML 1 ML VIAL IV PRN (16:48)
[2019-04-03] MEDS ORDERED: KETOROLAC 30 MG/ML 1 ML VIAL IVP PRN (16:48)
[2019-04-03] MEDS: methylPREDNISolone SOD SUCCI 40 MG/ML 1 ML VIAL IV SCH (22:27)
[2019-04-03] MEDS: diphenhydrAMINE 50 MG/ML 1 ML VIAL IVP SCH (22:27)
[2019-04-04] MEDS: diphenhydrAMINE 50 MG/ML 1 ML VIAL IVP SCH ×4 (03:26→20:24)
[2019-04-04] MEDS: methylPREDNISolone SOD SUCCI 40 MG/ML 1 ML VIAL IV SCH ×4 (03:26→20:19)
[2019-04-04] MEDS ORDERED: PANTOPRAZOLE 40 MG/10 ML VIAL IV SCH (09:00)
--- NOTE | 2019-04-04 11:30 | P.HPIM ---
History of Present Illness 43-year-old female came to emergency for her rash. Patient has symptomatology since today who diagnosed with erythema multiforme a patient's the rash is consistent with erythema multiforme patient has a targetoid lesions and predomi nantly in the left upper extremity with a bullous lesion. Patient appears to have erythema multiforme minor. Patient admits to having cold sores in the right upper lip on and off. Patient denies using any new medications recently earlier in the month patient used Augmentin. Patient denied any fever chills nausea vomiting abdominal pain. There is no mucosal involvement at this time. Patient has a small bullae-like lesion in one of the lower extremities. Patient probably will not require any systemic steroids as there is no mucosal involvement. Patient will be discharged to follow with dermatology as an outpatient on the topical steroids along with the Pepcid and patient has cetirizine at home which she will continue and patient will be given prescription for acyclovir as well. Patient was already given prescription for oral steroids for 5 days which she can start and continue Review of Systems REVIEW OF SYSTEMS: CONSTITUTIONAL: No fever, no malaise, no fatigue. HEENT: No recent visual problems or hearing problems. Denied any sore throat. CARDIOVASCULAR: No chest pain, orthopnea, PND, no palpitations, no syncope. PULMONARY: No shortness of breath, no cough, no hemoptysis. GASTROINTESTINAL: No diarrhea, no nausea, no vomiting, no abdominal pain. NEUROLOGICAL: No headaches, no weakness, no numbness. HEMATOLOGICAL: Denies any bleeding or petechiae. GENITOURINARY: Denies any burning micturition, frequency, or urgency. MUSCULOSKELETAL/RHEUMATOLOGICAL: Denies any joint pain, swelling, or any muscle pain. ENDOCRINE: Denies any polyuria or polydipsia. The rest of the 14-point review of systems is negative. Past Medical History Past Medical History: Hyperlipidemia, Hypertension Additional Past Medical History / Comment(s): childhood seizures, BILATERAL OPTIC NEUROPATHY,BLOOD IN STOOL,,KIDNEY STONE History of Any Multi-Drug Resistant Organisms: None Reported Past Surgical History: Section, Cholecystectomy, Hysterectomy, Tubal Ligation Additional Past Surgical History / Comment(s): C SECTION X 2 , LYSIS OF ADHESIONS Past Anesthesia/Blood Transfusion Reactions: No Reported Reaction Past Psychological History: Anxiety Smoking Status: Never smoker Past Alcohol Use History: None Reported Past Drug Use History: None Reported - Past Family History Father Family Medical History: Deep Vein Thrombosis (DVT) Medications and Allergies Home Medications Medication Instructions Recorded Confirmed Type Citalopram Hydrobromide [CeleXA] 20 mg PO DAILY 06/23/16 04/03/19 History Triamterene-Hctz 37.5-25Mg 1 cap PO DAILY 08/12/18 04/03/19 History [Dyazide 37.5-25 Capsule] cycloSPORINE 0.05% OPHTH SOLN 1 drop BOTH EYES BID 08/12/18 04/03/19 History [Restasis] predniSONE 50 mg PO DAILY #5 tablet 04/02/19 04/03/19 Rx Calcium/Magnesium/Zinc 1 tab PO DAILY 04/03/19 04/03/19 History [Slqihqg-Wzgozwvco-Igma Tablet] Cetirizine HCl 10 mg PO DAILY 04/03/19 04/03/19 History Fluticasone Nasal [place] [Flonase 1 spray EA NOSTRIL DAILY PRN 04/03/19 04/03/19 History Nasal [place]] Ibuprofen [Motrin Ib] 400 mg PO Q6H PRN 04/03/19 04/03/19 History Acyclovir [Zovirax] 400 mg PO TID #30 ml 04/04/19 Rx Betamethasone Dipropionate 1 applic TOPICAL TID #20 gm 04/04/19 Rx [Betamethasone Dipropionate 0.05%] Allergies Allergy/AdvReac Type Severity Reaction Status Date / Time amoxicillin [From Augmentin] Allergy Rash/Hives Verified 04/03/19 17:31 clavulanic acid Allergy Rash/Hives Verified 04/03/19 17:31 [From Augmentin] Pepper Allergy Rash/Hives Verified 04/03/19 17:43 azithromycin AdvReac Flushed/Sergo Verified 04/03/19 17:31 nt Physical Exam Vitals: Vital Signs Temp Pulse Pulse Resp BP BP Pulse Ox 04/04/19 07:45 98.3 F 99 12 112/72 96 04/04/19 03:24 14 04/04/19 01:10 98.3 F 89 14 111/64 95 04/03/19 23:00 14 04/03/19 19:56 98.1 F 89 14 112/63 96 04/03/19 19:10 14 02/25/20 17:50 98.7 F 100 18 126/82 93 L 04/03/19 17:20 99.3 F 98 18 142/87 98 04/03/19 16:02 95 18 129/80 98 04/03/19 14:22 98.4 F 117 H 20 144/85 98 Intake and Output 04/03/19 04/04/19 04/04/19 22:59 06:59 14:59 Intake Total 580 Balance 580 Intake: Oral 580 Other: Voiding Method Toilet Toilet Toilet # Voids 2 Weight 105.097 kg PHYSICAL EXAMINATION: GENERAL: The patient is alert and oriented x3, not in any acute distress. Well developed, well nourished. HEENT: Pupils are round and equally reacting to light. EOMI. No scleral icterus. No conjunctival pallor. Normocephalic, atraumatic. No pharyngeal erythema. No thyromegaly. CARDIOVASCULAR: S1 and S2 present. No murmurs, rubs, or gallops. PULMONARY: Chest is clear to auscultation, no wheezing or crackles. ABDOMEN: Soft, nontender, nondistended, normoactive bowel sounds. No palpable organomegaly. MUSCULOSKELETAL: No joint swelling or deformity. EXTREMITIES: No cyanosis, clubbing, or pedal edema. NEUROLOGICAL: Gross neurological examination did not reveal any focal deficits. SKIN: As mentioned above redness and targetoid lesions in the hands. Results CBC & Chem 7: 04/03/19 15:00 04/03/19 15:00 Labs: Abnormal Lab Results - Last 24 Hours (Table) 04/03/19 04/03/19 Range/Units 15:00 15:00 WBC 18.2 H (3.8-10.6) k/uL Neutrophils # 15.9 H (1.3-7.7) k/uL Sodium 135 L (137-145) mmol/L Carbon Dioxide 21 L (22-30) mmol/L BUN 20 H (7-17) mg/dL Glucose 192 H (74-99) mg/dL Thrombosis Risk Factor Assmnt - Choose All That Apply Any of the Below Risk Factors Present?: Yes Each Factor Represents 1 point: Age 41-60 years, Obesity (BMI >25) Other Risk Factors: No Other congenital or acquired thrombophilia - If yes, enter type in comment: No Thrombosis Risk Factor Assessment Total Risk Factor Score: 2 Thrombosis Risk Factor Assessment Level: Low Risk Assessment and Plan Plan: -Erythema multiforme minor: Patient will be given topical steroids will be discharged today patient did give me history of cold sores although she doesn't have any active HSV lesions. Patient will be given a week to 10 days of acyclovir -Hypertension -Hyperlipidemia
--- NOTE | 2019-04-04 11:30 | P.DS ---
Providers Date of admission: 04/03/19 17:02 Attending physician: Michaelle Esparza Consults: 04/03/19 16:52 Consult Physician Stat Consulting Provider: Sofie Guevara Consult Reason/Comments: erythema multiforme Do you want consulting provider notified?: Yes Primary care physician: Janice Giraldo [facility] Course: Please refer to my HPI for further details Patient Condition at Discharge: Stable Plan - Discharge Summary New Discharge Prescriptions: New Betamethasone Dipropionate [Betamethasone Dipropionate 0.05%] 1 applic TOPICAL TID #20 gm Acyclovir [Zovirax] 400 mg PO TID #30 ml Famotidine [Pepcid] 20 mg PO BID #30 tablet Discontinued diphenhydrAMINE [Benadryl] 25 mg PO QID #30 capsule No Action Citalopram Hydrobromide [CeleXA] 20 mg PO DAILY cycloSPORINE 0.05% OPHTH SOLN [Restasis] 1 drop BOTH EYES BID Triamterene-Hctz 37.5-25Mg [Dyazide 37.5-25 Capsule] 1 cap PO DAILY predniSONE 50 mg PO DAILY #5 tablet Ibuprofen [Motrin Ib] 400 mg PO Q6H PRN PRN Reason: Pain Fluticasone Nasal [place] [Flonase Nasal [place]] 1 spray EA NOSTRIL DAILY PRN PRN Reason: Allergy Symptoms Cetirizine HCl 10 mg PO DAILY Calcium/Magnesium/Zinc [Ytyxepi-Rznnvvvxf-Rglx Tablet] 1 tab PO DAILY Discharge Medication List Citalopram Hydrobromide [CeleXA] 20 mg PO DAILY 06/23/16 [History] Triamterene-Hctz 37.5-25Mg [Dyazide 37.5-25 Capsule] 1 cap PO DAILY 08/12/18 [History] cycloSPORINE 0.05% OPHTH SOLN [Restasis] 1 drop BOTH EYES BID 08/12/18 [History] predniSONE 50 mg PO DAILY #5 tablet 04/02/19 [Rx] Calcium/Magnesium/Zinc [Nsrnvdv-Jeatybnxe-Idht Tablet] 1 tab PO DAILY 04/03/19 [History] Cetirizine HCl 10 mg PO DAILY 04/03/19 [History] Fluticasone Nasal [place] [Flonase Nasal [place]] 1 spray EA NOSTRIL DAILY PRN 04/03/19 [History] Ibuprofen [Motrin Ib] 400 mg PO Q6H PRN 04/03/19 [History] Acyclovir [Zovirax] 400 mg PO TID #30 ml 04/04/19 [Rx] Betamethasone Dipropionate [Betamethasone Dipropionate 0.05%] 1 applic TOPICAL TID #20 gm 04/04/19 [Rx] Famotidine [Pepcid] 20 mg PO BID #30 tablet 04/04/19 [Rx] Follow up Appointment(s)/Referral(s): Sofie Guevara MD [STAFF PHYSICIAN] - 04/06/19 10:45 am (With Ashleigh) Janice Giraldo DO [Primary Care Provider] - 3 Days Discharge Disposition: HOME SELF-CARE
--- NOTE | 2019-04-04 18:19 | CONS ---
CONSULTATION Thank you for asking me to evaluate your patient. The patient is a 43-year-old female admitted for rash on hands, which we were consulted to evaluate. Patient was evaluated in our office for this rash on 04/03/2019 and the diagnosis of erythema multiforme was given. Patient states she received a dose of IV steroids on 04/02/2019 when she went to the ER prior to being seen in our office. The patient is currently on prednisone 50 mg p.o. daily with a taper after 5 days. Patient states the rash on her hands is concerning, as she has gotten new lesions in the past 24 hours. Patient states she does have a history of cold sores on the mouth but currently does not have any at this time. PAST MEDICAL HISTORY: Hyperlipidemia, hypertension, childhood seizures, bilateral optic neuropathy, blood in stool, kidney stones. PAST SURGICAL HISTORY: , cholecystectomy, hysterectomy, tubal ligation. FAMILY MEDICAL HISTORY: Unknown. SOCIAL HISTORY: Denies smoking and alcohol use. MEDICATIONS: See chart. ALLERGIES: AUGMENTIN, PEPPER AND AZITHROMYCIN. PHYSICAL EXAMINATION: On examination, there are a few dusky violaceous patches and plaques on the dorsal sides of the hands with one vesicle present at this time. There are no lesions present in the mouth, on the lips or in the vaginal mucosa at this time. DIAGNOSIS: Erythema multiforme versus Sweet syndrome versus vasculitis. A test for an ASO titer was ordered. A throat culture was ordered and an MISSY was ordered as well. Recommend patient to follow up in the office immediately upon discharge on 04/05/2019 for a biopsy of H&E and direct immunofluorescence to reach a definitive diagnosis. This case was discussed with Dr. Sofie Guevara. If you have any questions, you can call our office at . MMODL / IJN: [id number] /
[2019-04-05] MEDS: methylPREDNISolone SOD SUCCI 40 MG/ML 1 ML VIAL IV SCH ×2 (02:14→08:32)
[2019-04-05] MEDS: diphenhydrAMINE 50 MG/ML 1 ML VIAL IVP SCH ×2 (02:18→08:32)
[2019-04-05] MEDS ORDERED: PANTOPRAZOLE 40 MG TABLET PO SCH (07:30)
[2019-04-05 07:38] VITALS: BP 133/74; PULSE 71; RESP 16; TEMP 98
== END 2019-04-05 08:19 | disposition home or self-care (01) | DRG 596 ==
LOC: EC 14:11 → 4SSUR 17:02
PROVIDERS: ADMIT Hospitalist; ATTEND Hospitalist
DX: L51.9 Erythema multiforme, unspecified (principal); E78.5 Hyperlipidemia, unspecified; F41.9 Anxiety disorder, unspecified; I10 Essential (primary) hypertension; Z79.899 Other long term (current) drug therapy; Z86.19 Personal history of other infectious and parasitic diseases; Z87.442 Personal history of urinary calculi; Z90.710 Acquired absence of both cervix and uterus; Z98.891 History of uterine scar from previous surgery; Z90.49 Acquired absence of other specified parts of digestive tract; Z82.49 Family history of ischemic heart disease and other diseases of the circulatory system; Z88.1 Allergy status to other antibiotic agents; Z88.0 Allergy status to penicillin; Z91.018 Allergy to other foods; Z98.51 Tubal ligation status
CPT/HCPCS: 36415; 71046; 80048; 80053; 85025; 86038; 86060; 87081; 87252; 87430; 87498; 87529; 87798; 96361; 96374; 96375; 99283; 99285

== ENCOUNTER → 2020-05-09 | Outpatient (CLI) | payer BC ==
--- NOTE | 2020-05-09 21:04 | CT ---
EXAMINATION TYPE: CT abdomen pelvis w con DATE OF EXAM: 05/09/2020 COMPARISON: 08/12/2018 HISTORY: Pelvic, perineal pain, abdomen tenderness. Hx ruptured ovaries CT DLP: 1994.10 mGycm Automated exposure control for dose reduction was used. CONTRAST: Performed with IV Contrast, patient injected with 100 mL of Isovue 300. Lung bases are clear. There is no pleural effusion. Heart size is normal. There is no pericardial eff usion. Liver spleen stomach appear intact. The bile ducts are not dilated. Gallbladder is absent. There is n o evidence of pancreatic mass. There is no adrenal mass. Kidneys show satisfactory contrast opacification. There is no hydronephrosi s. Delayed images show normal renal excretion. Ureters are not dilated. There is no retroperitoneal a denopathy. Appendix is posterior and appears normal. Bladder distends smoothly. There is no inguinal hernia. There is no free fluid in the pelvis. There is 2 cm cyst in the pelvis on the left side that is probably ovarian cyst. There is hysterectomy. There is some minimal fat stranding anterior to the mid sigmoid colon. There is no colon wall thicken ing. The lumbar vertebra have normal alignment. There is no compression fracture. Posterior elements are i ntact. The bony pelvis appears intact. The hip joints are intact. IMPRESSION: There are some inflammatory mild changes anterior to the proximal sigmoid colon. There is no wall thi ckening seen however. This could be the sequela of focal colitis. No evidence of any significant dive rticular disease. Abnormality is new compared to old exam. There is left ovarian cyst that is smaller than old exam.
== END | disposition home or self-care (01) ==
LOC: RADCTMAIN 17:16
PROVIDERS: ATTEND Family Medicine
DX: N83.202 Unspecified ovarian cyst, left side (principal); R93.5 Abnormal findings on diagnostic imaging of other abdominal regions, including retroperitoneum
CPT/HCPCS: 74177; Q9967

== ENCOUNTER 2020-06-15 16:48 | Emergency (ER) | payer BC ==
[2020-06-15 17:16] VITALS: RESP 18; TEMP 99.1
--- NOTE | 2020-06-15 17:47 | ED ---
General Adult HPI - General Chief complaint: Extremity Problem,Nontraumatic Stated complaint: weakness/swelling Time Seen by Provider: 06/15/20 17:18 Source: patient Mode of arrival: ambulatory Limitations: no limitations - History of Present Illness Initial comments: Is a 44-year-old female who presents emergency department for swelling. The patient states that she woke up today and felt like her face, neck, bilateral arms and hands and bilateral legs were more swollen than normal. She states that it just started this morning. Yesterday she felt fine. She states that she has had intermittent pain and swelling to her right knee for the last month or so however attributed this to arthritis. She states that she does not have any pain in her calves, arms, or face. She states that she has no trouble breathing or chest pain. She states that she just feels like she has generalized swelling. She states that she's been urinating normally. No hematuria. No abdominal pain, nausea, vomiting. No new medications. The patient's on triamterene and has been taking this as prescribed. She states that she went to an urgent care earlier today and got a shot of steroids and when she felt like she wasn't improving she was sent to the emergency department. - Related Data Home Medications Medication Instructions Recorded Confirmed Citalopram Hydrobromide [CeleXA] 20 mg PO DAILY 06/23/16 06/15/20 Triamterene-Hctz 37.5-25Mg 1 cap PO DAILY 08/12/18 06/15/20 [Dyazide 37.5-25 Capsule] Allergies Allergy/AdvReac Type Severity Reaction Status Date / Time amoxicillin [From Augmentin] Allergy Rash/Hives Verified 06/15/20 18:42 clavulanic acid Allergy Rash/Hives Verified 06/15/20 18:42 [From Augmentin] Pepper Allergy Rash/Hives Verified 06/15/20 18:42 azithromycin AdvReac Flushed/Sergo Verified 06/15/20 18:42 nt Review of Systems ROS Statement: Those systems with pertinent positive or pertinent negative responses have been documented in the HPI. ROS Other: All systems not noted in ROS Statement are negative. Past Medical History Past Medical History: Hyperlipidemia, Hypertension Additional Past Medical History / Comment(s): childhood seizures, BILATERAL OPTIC NEUROPATHY,BLOOD IN STOOL,,KIDNEY STONE History of Any Multi-Drug Resistant Organisms: None Reported Past Surgical History: Section, Cholecystectomy, Hysterectomy, Tubal Ligation Additional Past Surgical History / Comment(s): C SECTION X 2 , LYSIS OF ADHESIONS Past Anesthesia/Blood Transfusion Reactions: No Reported Reaction Past Psychological History: Anxiety Smoking Status: Never smoker Past Alcohol Use History: None Reported Past Drug Use History: None Reported - Past Family History Father Family Medical History: Deep Vein Thrombosis (DVT) General Exam - General Exam Comments Initial Comments: Constitutional: Awake alert Appears comfortable Head: Normocephalic atraumatic Eyes: no conjunctival injection No scleral icterus EOMI Neck: No JVD Supple Heart: Regular rate rhythm normal S1-S2 no murmurs Lungs: Clear to auscultation bilaterally No wheezing No rales Abdomen: Soft nondistended nontender Extremities: I do not see any pitting edema of the legs or arms or hands. The patient states that she feels that they're puffier than normal and her ring on her left hand does state a little bit tighter fitting than normal DP pulses intact Radial pulses intact Neuro: A&Ox3 No focal neurologic deficits Psych: Appropriate mood and affect Limitations: no limitations Course Vital Signs 06/15/20 06/15/20 17:11 18:16 Temperature 99.1 F Pulse Rate 113 H Respiratory 18 18 Rate Blood Pressure 137/81 O2 Sat by Pulse 98 Oximetry Medical Decision Making - Medical Decision Making This 44-year-old female who presents emergency department for generalized swe lling. I did not note any pitting edema in her extremities. The patient stated that she felt swollen however. I did evaluate her with blood work that was unremarkable except for some hyperglycemia. Urine also showed some glucosuria and ketonuria. I'm not sure if this may be part of the etiology of her symptoms. The patient does not have a known history of diabetes. Otherwise is no evidence for kidney failure. A code was negative. D-dimer is negative. At this time I feel the patient's okay to go home. She is to follow-up closely with her primary doctor to get the hyperglycemia further evaluated with possibly an A1c. She can monitor her swelling and if things tend to worsen or change she can return emergency Department for reevaluation. All questions were answered. - Lab Data Result diagrams: 06/15/20 18:18 06/15/20 18:18 Lab Results 05/10/2806/15/20 06/15/20 Range/Units 18:18 18:18 18:18 WBC 8.3 (3.8-10.6) k/uL RBC 4.97 (3.80-5.40) m/uL Hgb 14.8 (11.4-16.0) gm/dL Hct 42.5 (34.0-46.0) % MCV 85.6 (80.0-100.0) fL MCH 29.8 (25.0-35.0) pg MCHC 34.8 (31.0-37.0) g/dL RDW 12.8 (11.5-15.5) % Plt Count 309 (150-450) k/uL MPV 7.3 Neutrophils % 87 % Lymphocytes % 11 % Monocytes % 1 % Eosinophils % 1 % Basophils % 0 % Neutrophils # 7.3 (1.3-7.7) k/uL Lymphocytes # 0.9 L (1.0-4.8) k/uL Monocytes # 0.1 (0-1.0) k/uL Eosinophils # 0.1 (0-0.7) k/uL Basophils # 0.0 (0-0.2) k/uL D-Dimer (<0.60) mg/L FEU Sodium 138 (137-145) mmol/L Potassium 3.4 L (3.5-5.1) mmol/L Chloride 106 (98-107) mmol/L Carbon Dioxide 19 L (22-30) mmol/L Anion Gap 13 mmol/L BUN 8 (7-17) mg/dL Creatinine 0.61 (0.52-1.04) mg/dL Est GFR (CKD-EPI)AfAm >90 (>60 ml/min/1.73 sqM) Est GFR (CKD-EPI)NonAf >90 (>60 ml/min/1.73 sqM) Glucose 238 H (74-99) mg/dL Calcium 9.5 (8.4-10.2) mg/dL Total Bilirubin 0.2 (0.2-1.3) mg/dL AST 26 (14-36) U/L ALT 20 (4-34) U/L Alkaline Phosphatase 123 (38-126) U/L Total Protein 6.5 (6.3-8.2) g/dL Albumin 4.0 (3.5-5.0) g/dL Urine Color Urine Appearance (Clear) Urine pH (5.0-8.0) Ur Specific [place] (1.001-1.035) Urine Protein (Negative) Urine Glucose (UA) (Negative) Urine Ketones (Negative) Urine Blood (Negative) Urine Nitrite (Negative) Urine Bilirubin (Negative) Urine Urobilinogen (<2.0) mg/dL Ur Leukocyte Esterase (Negative) Coronavirus (PCR) Not Detected (Not Detectd) 06/15/20 06/15/20 Range/Units 18:18 18:18 WBC (3.8-10.6) k/uL RBC (3.80-5.40) m/uL Hgb (11.4-16.0) gm/dL Hct (34.0-46.0) % MCV (80.0-100.0) fL MCH (25.0-35.0) pg MCHC (31.0-37.0) g/dL RDW (11.5-15.5) % Plt Count (150-450) k/uL MPV Neutrophils % % Lymphocytes % % Monocytes % % Eosinophils % % Basophils % % Neutrophils # (1.3-7.7) k/uL Lymphocytes # (1.0-4.8) k/uL Monocytes # (0-1.0) k/uL Eosinophils # (0-0.7) k/uL Basophils # (0-0.2) k/uL D-Dimer 0.29 (<0.60) mg/L FEU Sodium (137-145) mmol/L Potassium (3.5-5.1) mmol/L Chloride (98-107) mmol/L Carbon Dioxide (22-30) mmol/L Anion Gap mmol/L BUN (7-17) mg/dL Creatinine (0.52-1.04) mg/dL Est GFR (CKD-EPI)AfAm (>60 ml/min/1.73 sqM) Est GFR (CKD-EPI)NonAf (>60 ml/min/1.73 sqM) Glucose (74-99) mg/dL Calcium (8.4-10.2) mg/dL Total Bilirubin (0.2-1.3) mg/dL AST (14-36) U/L ALT (4-34) U/L Alkaline Phosphatase (38-126) U/L Total Protein (6.3-8.2) g/dL Albumin (3.5-5.0) g/dL Urine Color Light Yellow Urine Appearance Clear (Clear) Urine pH 5.0 (5.0-8.0) Ur Specific [place] 1.020 (1.001-1.035) Urine Protein Negative (Negative) Urine Glucose (UA) 4+ H (Negative) Urine Ketones Trace H (Negative) Urine Blood Negative (Negative) Urine Nitrite Negative (Negative) Urine Bilirubin Negative (Negative) Urine Urobilinogen <2.0 (<2.0) mg/dL Ur Leukocyte Esterase Negative (Negative) Coronavirus (PCR) (Not Detectd) Disposition Clinical Impression: Hyperglycemia Disposition: HOME SELF-CARE Condition: Stable Instructions (If sedation given, give patient instructions): Nondiabetic Hyperglycemia (ED) Is patient prescribed a controlled substance at d/c from ED?: No Referrals: Janice Giraldo DO [Primary Care Provider] - 1-2 days
[2020-06-15 18:37] LABS: Basophils % (A) 0 %; Eosinophils # (A) 0.1 k/uL (0-0.7); Eosinophils % (A) 1 %; HCT 42.5 % (34.0-46.0); HGB 14.8 gm/dL (11.4-16.0); Lymphocytes # (A) 0.9 k/uL (1.0-4.8); Lymphocytes % (A) 11 %; MCH 29.8 pg (25.0-35.0); MCHC 34.8 g/dL (31.0-37.0); MCV 85.6 fL (80.0-100.0); Mean Platelet Volume 7.3; Monocytes # (A) 0.1 k/uL (0-1.0); Monocytes % (A) 1 %; Neutrophils # (A) 7.3 k/uL (1.3-7.7); Neutrophils % (A) 87 %; Platelet Count 309 k/uL (150-450); RBC 4.97 m/uL (3.80-5.40); RDW 12.8 % (11.5-15.5); WBC 8.3 k/uL (3.8-10.6)
[2020-06-15 18:38] LABS: Appearance,Urine Clear (Clear); Bilirubin,Urine Negative (Negative); Blood,Urine Negative (Negative); Color,Urine Light Yellow; Glucose,Urine (UA) 4+ (Negative); Ketones,Urine Trace (Negative); Leukocyte Esterase,Urine Negative (Negative); Nitrite,Urine Negative (Negative); Protein,Urine Negative (Negative); Urobilinogen,Urine <2.0 mg/dL (<2.0)
[2020-06-15 18:49] LABS: AST 26 U/L (14-36); African American GFR (CKD) >90 (>60 ml/min/1.73 sqM); Alkaline Phosphatase 123 U/L (38-126); Anion Gap 13 mmol/L; Blood Urea Nitrogen 8 mg/dL (7-17); Calcium 9.5 mg/dL (8.4-10.2); Carbon Dioxide 19 mmol/L (22-30); Chloride 106 mmol/L (98-107); Glucose 238 mg/dL (74-99); Non-African American GFR(CKD) >90 (>60 ml/min/1.73 sqM); Potassium 3.4 mmol/L (3.5-5.1); Sodium 138 mmol/L (137-145); Total Bilirubin 0.2 mg/dL (0.2-1.3); Total Protein 6.5 g/dL (6.3-8.2)
[2020-06-15 18:56] LABS: ALT 20 U/L (4-34)
[2020-06-15 19:33] VITALS: BP 124/75; PULSE 81
== END 2020-06-15 19:33 | disposition home or self-care (01) ==
LOC: EC 16:48
DX: R73.9 Hyperglycemia, unspecified (principal); R22.0 Localized swelling, mass and lump, head; R22.1 Localized swelling, mass and lump, neck; M79.89 Other specified soft tissue disorders; E78.5 Hyperlipidemia, unspecified; I10 Essential (primary) hypertension; G40.909 Epilepsy, unspecified, not intractable, without status epilepticus; F41.9 Anxiety disorder, unspecified; Z20.822 Contact with and (suspected) exposure to COVID-19
CPT/HCPCS: 36415; 80053; 81003; 84443; 85025; 85379; 87635; 99285

== ENCOUNTER → 2020-07-02 | Outpatient (CLI) | payer BC ==
--- NOTE | 2020-07-03 01:50 | MR ---
EXAMINATION TYPE: MR knee RT wo con DATE OF EXAM: 07/02/2020 COMPARISON: None HISTORY: Right knee pain x 3 mos, no trauma. Multiplanar multiecho imaging of the right knee was performed without contrast. The anterior and posterior cruciate ligament are intact. There is increased signal in the posterior h orn medial meniscus consistent with a complex tear. The other menisci appear intact. There is some me dial displacement of the medial meniscus. There is slight narrowing of the medial joint space. There is a large knee joint effusion. I see no bony destructive process. The collateral ligaments are intac t. There is no evidence of a fracture. IMPRESSION: Large knee joint effusion. Complex tear posterior horn medial meniscus with degenerative thinning and medial joint space narrowing. Medial displacement of the medial meniscus. No evidence of ligamentous tear.
== END | disposition home or self-care (01) ==
LOC: RADMRIMAIN 20:03
PROVIDERS: ATTEND Family Medicine
DX: M23.321 Other meniscus derangements, posterior horn of medial meniscus, right knee (principal); M17.11 Unilateral primary osteoarthritis, right knee

== ENCOUNTER → 2021-09-11 | Outpatient (CLI) | payer BC ==
--- NOTE | 2021-09-14 08:38 | MM ---
Reason for Exam: Screening (asymptomatic). Patient History: Menarche at age 15. First Full-Term at age 35. Late child-bearing (after 32). Left ovary removed at age 38. Hysterectomy at age 38. Maternal grandmother had breast cancer, age 55. Risk Values: Haylee 5 year model risk: 1.0%. NCI Lifetime model risk: 13.2%. Tissue Density: The breast tissue is heterogeneously dense. This may lower the sensitivity of mammography. NEW BASELINE-PT DOES NOT KNOW WHEN AND WHERE PRIORS WERE DONE. Findings: Analyzed By CAD. There is no suspicious group of microcalcifications or suspicious mass in either breast. Overall Assessment: Negative, BI-RAD 1 Management: Screening Mammogram of both breasts in 1 year. A clinical breast exam by your physician is recommended on an annual basis and results should be correlated with mammographic findings. Electronically signed and approved by: Juan Miguel Gee D.O.
== END | disposition home or self-care (01) ==
LOC: RADMAMWWP 16:18
PROVIDERS: ATTEND Family Medicine
DX: Z12.31 Encounter for screening mammogram for malignant neoplasm of breast (principal); Z80.3 Family history of malignant neoplasm of breast
CPT/HCPCS: 77063; 77067

== ENCOUNTER 2021-10-30 11:23 | Observation (INO) | payer BC ==
[2021-10-30] MEDS ORDERED: NITROGLYCERIN OINT 1 INCH/GM PACKET TOPICAL STA (11:37)
[2021-10-30] MEDS ORDERED: ASPIRIN 81 MG PO STA (11:37)
--- NOTE | 2021-10-30 11:44 | ED ---
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 Patient states the pain radiated to her back and she became very short of breath. Patient denied any diaphoretic episodes or nausea. Patient states she does have high blood pressure she states she might have high cholesterol but doesn't know. Patient states she has a strong family history of heart disease. Patient denies any syncope or near syncopal episode. Patient denies abdominal pain patient denies any vomiting or diarrhea. Patient denies any recent fever chills or cough. Patient denies any heart history for herself. Patient denies smoking. Patient denies any swelling to her legs or calf tenderness. Patient states that in route to the hospital he gave her nitroglycerin and it took her pain away. - Related Data Home Medications Medication Instructions Recorded Confirmed Citalopram Hydrobromide [CeleXA] 20 mg PO DAILY 06/23/16 10/30/21 Triamterene-Hctz 37.5-25Mg 1 cap PO DAILY 08/12/18 10/30/21 [Dyazide 37.5-25 Capsule] Allergies Allergy/AdvReac Type Severity Reaction Status Date / Time amoxicillin [From Augmentin] Allergy Rash/Hives Verified 10/30/21 12:23 clavulanic acid Allergy Rash/Hives Verified 10/30/21 12:23 [From Augmentin] Pepper Allergy Rash/Hives Verified 10/30/21 12:23 azithromycin AdvReac Flushed/Sergo Verified 10/30/21 12:23 nt Review of Systems ROS Statement: Those systems with pertinent positive or pertinent negative responses have been documented in the HPI. ROS Other: All systems not noted in ROS Statement are negative. Past Medical History Past Medical History: Hyperlipidemia, Hypertension Additional Past Medical History / Comment(s): childhood seizures, BILATERAL OPTIC NEUROPATHY,BLOOD IN STOOL,,KIDNEY STONE History of Any Multi-Drug Resistant Organisms: None Reported Past Surgical History: Section, Cholecystectomy, Hysterectomy, Tubal Ligation Additional Past Surgical History / Comment(s): C SECTION X 2 , LYSIS OF ADHESIONS Past Anesthesia/Blood Transfusion Reactions: No Reported Reaction Past Psychological History: Anxiety Smoking Status: Never smoker Past Alcohol Use History: None Reported Past Drug Use History: None Reported - Past Family History Father Family Medical History: Deep Vein Thrombosis (DVT) General Exam - General Exam Comments Initial Comments: GENERAL: Patient is well-developed and well-nourished. Patient is nontoxic and well- hydrated and is in mild distress. ENT: Neck is soft and supple. No significant lymphadenopathy is noted. Oropharynx is clear. Moist mucous membranes. Neck has full range of motion without eliciting any pain. EYES: The sclera were anicteric and conjunctiva were pink and moist. Extraocular movements were intact and pupils were equal round and reactive to light. Eyelids were unremarkable. PULMONARY: Unlabored respirations. Good breath sounds bilaterally. No audible rales rhonchi or wheezing was noted. CARDIOVASCULAR: There is a regular rate and rhythm without any murmurs gallops or rubs. ABDOMEN: Soft and nontender with normal bowel sounds. SKIN: Skin is clear with no lesions or rashes and otherwise unremarkable. NEUROLOGIC: Patient is alert and oriented x3. Cranial nerves II through XII are grossly intact. Motor and sensory are also intact. Normal speech, volume and content. Symmetrical smile. MUSCULOSKELETAL: Normal extremities with adequate strength and full range of motion. LYMPHATICS: No significant lymphadenopathy is noted PSYCHIATRIC: Normal psychiatric evaluation. Limitations: no limitations Course Vital Signs 10/30/21 10/30/21 10/30/21 11:25 11:51 12:33 Temperature 98 F 98.2 F Pulse Rate 74 70 68 Respiratory 18 16 16 Rate Blood Pressure 134/91 142/82 133/93 O2 Sat by Pulse 97 98 99 Oximetry Medical Decision Making - Medical Decision Making EKG shows sinus rhythm at 71 bpm RI interval 146 QRS is 77 QT interval 381 QTC is 44. Patient's EKG shows no ST segment elevation or depression. Patient's troponin was mildly elevated I started the patient on heparin for the unstable angina picture. I spoke with sounds physician's agreed to admit the patient admitted the patient I wrote admitting orders and I consult to cardiology. I continued heparin and aspirin and Nitropaste on the floor. I went back in and reevaluated the patient she was chest pain-free at this time. - Lab Data Result diagrams: 10/30/21 11:45 10/30/21 11:45 Lab Results 10/30/21 10/30/21 10/30/21 Range/Units 11:45 11:45 11:45 WBC 7.0 (3.8-10.6) k/uL RBC 5.22 (3.80-5.40) m/uL Hgb 15.2 (11.4-16.0) gm/dL Hct 46.0 (34.0-46.0) % MCV 88.2 (80.0-100.0) fL MCH 29.1 (25.0-35.0) pg MCHC 33.0 (31.0-37.0) g/dL RDW 13.3 (11.5-15.5) % Plt Count 289 (150-450) k/uL MPV 7.4 Neutrophils % 52 % Lymphocytes % 36 % Monocytes % 6 % Eosinophils % 4 % Basophils % 1 % Neutrophils # 3.7 (1.3-7.7) k/uL Lymphocytes # 2.5 (1.0-4.8) k/uL Monocytes # 0.4 (0-1.0) k/uL Eosinophils # 0.3 (0-0.7) k/uL Basophils # 0.1 (0-0.2) k/uL PT 11.2 (9.0-12.0) sec INR 1.0 (<1.2) APTT 24.7 (22.0-30.0) sec Sodium 136 L (137-145) mmol/L Potassium 3.4 L (3.5-5.1) mmol/L Chloride 98 (98-107) mmol/L Carbon Dioxide 28 (22-30) mmol/L Anion Gap 10 mmol/L BUN 15 (7-17) mg/dL Creatinine 0.76 (0.52-1.04) mg/dL Est GFR (CKD-EPI)AfAm >90 (>60 ml/min/1.73 sqM) Est GFR (CKD-EPI)NonAf >90 (>60 ml/min/1.73 sqM) Glucose 101 H (74-99) mg/dL Calcium 9.6 (8.4-10.2) mg/dL Magnesium 1.9 (1.6-2.3) mg/dL Total Bilirubin 0.6 (0.2-1.3) mg/dL AST 27 (14-36) U/L ALT 21 (4-34) U/L Alkaline Phosphatase 91 (38-126) U/L Troponin I (0.000-0.034) ng/mL Total Protein 6.9 (6.3-8.2) g/dL Albumin 4.4 (3.5-5.0) g/dL 10/30/21 Range/Units 11:45 WBC (3.8-10.6) k/uL RBC (3.80-5.40) m/uL Hgb (11.4-16.0) gm/dL Hct (34.0-46.0) % MCV (80.0-100.0) fL MCH (25.0-35.0) pg MCHC (31.0-37.0) g/dL RDW (11.5-15.5) % Plt Count (150-450) k/uL MPV Neutrophils % % Lymphocytes % % Monocytes % % Eosinophils % % Basophils % % Neutrophils # (1.3-7.7) k/uL Lymphocytes # (1.0-4.8) k/uL Monocytes # (0-1.0) k/uL Eosinophils # (0-0.7) k/uL Basophils # (0-0.2) k/uL PT (9.0-12.0) sec INR (<1.2) APTT (22.0-30.0) sec Sodium (137-145) mmol/L Potassium (3.5-5.1) mmol/L Chloride (98-107) mmol/L Carbon Dioxide (22-30) mmol/L Anion Gap mmol/L BUN (7-17) mg/dL Creatinine (0.52-1.04) mg/dL Est GFR (CKD-EPI)AfAm (>60 ml/min/1.73 sqM) Est GFR (CKD-EPI)NonAf (>60 ml/min/1.73 sqM) Glucose (74-99) mg/dL Calcium (8.4-10.2) mg/dL Magnesium (1.6-2.3) mg/dL Total Bilirubin (0.2-1.3) mg/dL AST (14-36) U/L ALT (4-34) U/L Alkaline Phosphatase (38-126) U/L Troponin I 0.041 H* (0.000-0.034) ng/mL Total Protein (6.3-8.2) g/dL Albumin (3.5-5.0) g/dL Critical Care Time Critical Care Time: Yes Total Critical Care Time: 35 Disposition Clinical Impression: Unstable angina pectoris Disposition: ADMITTED IP TO THIS HOSP Referrals: Janice Giraldo DO [Primary Care Provider] - 1-2 days Time of Disposition: 12:47
[2021-10-30 11:54] LABS: Basophils # (A) 0.1 k/uL (0-0.2); Basophils % (A) 1 %; Eosinophils # (A) 0.3 k/uL (0-0.7); Eosinophils % (A) 4 %; HGB 15.2 gm/dL (11.4-16.0); Lymphocytes # (A) 2.5 k/uL (1.0-4.8); Lymphocytes % (A) 36 %; MCH 29.1 pg (25.0-35.0); MCV 88.2 fL (80.0-100.0); Mean Platelet Volume 7.4; Monocytes # (A) 0.4 k/uL (0-1.0); Monocytes % (A) 6 %; Neutrophils # (A) 3.7 k/uL (1.3-7.7); Neutrophils % (A) 52 %; Platelet Count 289 k/uL (150-450); RBC 5.22 m/uL (3.80-5.40); RDW 13.3 % (11.5-15.5)
[2021-10-30 12:04] LABS: ALT 21 U/L (4-34); AST 27 U/L (14-36); African American GFR (CKD) >90 (>60 ml/min/1.73 sqM); Albumin 4.4 g/dL (3.5-5.0); Alkaline Phosphatase 91 U/L (38-126); Anion Gap 10 mmol/L; Blood Urea Nitrogen 15 mg/dL (7-17); Calcium 9.6 mg/dL (8.4-10.2); Carbon Dioxide 28 mmol/L (22-30); Chloride 98 mmol/L (98-107); Glucose 101 mg/dL (74-99); Magnesium 1.9 mg/dL (1.6-2.3); Non-African American GFR(CKD) >90 (>60 ml/min/1.73 sqM); Potassium 3.4 mmol/L (3.5-5.1); Sodium 136 mmol/L (137-145); Total Bilirubin 0.6 mg/dL (0.2-1.3); Total Protein 6.9 g/dL (6.3-8.2)
--- NOTE | 2021-10-30 12:07 | XR ---
EXAMINATION TYPE: XR chest 2V DATE OF EXAM: 10/30/2021 COMPARISON: Chest x-ray 04/03/2019 HISTORY: Chest pain TECHNIQUE: Frontal and lateral views of the chest are obtained. FINDINGS: There is no focal air space opacity, pleural effusion, or pneumothorax seen. The cardiac silhouette size is within normal limits. There overlying leads. Right hemidiaphragm remains elevated . The osseous structures are intact. IMPRESSION: No acute cardiopulmonary process.
[2021-10-30 12:09] LABS: Partial Thromboplastin Time 24.7 sec (22.0-30.0); Prothrombin Time 11.2 sec (9.0-12.0)
[2021-10-30] MEDS ORDERED: HEPARIN SODIUM 1,000 UN/ML (10ML VL) IV ONE (12:46)
[2021-10-30] MEDS ORDERED: NITROGLYCERIN SL TABS 0.4 MG TAB SUBLINGUAL PRN (13:12)
--- NOTE | 2021-10-30 14:00 | P.CRDCN ---
History of Present Illness History of present illness: HISTORY OF PRESENT ILLNESS: This is a 45-year-old female with a past medical history significant for hypertension and borderline hyperlipidemia. Patient does not follow with a turn operator. We have been asked to see the patient in consultation for chest pain. Patient examined at the bedside in the emergency room. 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 She was at work today when she began to have chest discomfort. She states the pain was in the middle of her chest and went into her shoulder and her back. She states that she decided to sit down for a minute to rest. She states her chest became very heavy and she was unable to take a deep breath. She denied any dizziness or lightheadedness. Denied any diaphoresis. Denied any shortness of breath. She states that she has never experienced chest pain like this before. She reports having mild chest discomfort at the time of examination although significantly improved. The patient is a nonsmoker. She denies any alcohol use. Denies any drug use including marijuana. The patient reports having occasional swelling in her lower extremities but she states that she has bad knees and sometimes they swell secondary to that. She denies history of CHF. She reports a history of seizures as a child, but states she has not had a seizure since then. She reports a family history of coronary artery disease. She states that heard dad has had heart attacks in the past and also has a AICD. She also reports that her brother had a heart attack at a young age. * EKG reveals sinus mechanism with no signs of acute ischemia * Chest xray negative for acute process * Laboratory data: WBC 7.0. Hemoglobin 15.2. Platelet count 289. Sodium 136. Potassium 3.4. BUN 15. Creatinine 0.76. Troponin 0.041. * Current home cardiac medications include Dyazide 37.5-25 milligrams daily REVIEW OF SYSTEMS: At the time of my exam: CONSTITUTIONAL: Denies fever or chills. HEENT: Denies blurred vision, vision changes, or eye pain. Denies hemoptysis CARDIOVASCULAR: Denies chest pain. Denies orthopnea. Denies PND. Denies palpitations RESPIRATORY: Denies shortness of breath. GASTROINTESTINAL: Denies abdominal pain. Denies nausea or vomiting. HEMATOLOGIC: Denies bleeding disorders. GENITOURINARY: Denies any blood in urine. SKIN: Denies pruitis. Denies rash. PHYSICAL EXAM: VITAL SIGNS: Reviewed. GENERAL: Well-developed in no acute distress. HEENT: Head is normocephalic. Pupils are equal, round. Sclerae anicteric. Mucous membranes of the mouth are moist. Neck supple. No JVD or thyromegaly LUNGS: Respirations even and unlabored. Lungs essentially clear to auscultation bilaterally. HEART: Regular rate and rhythm. S1 and S2 heard. Soft systolic murmur. ABDOMEN: Soft. Nondistended. Nontender. EXTREMITIES: Normal range of motion. No clubbing or cyanosis. Peripheral pulses intact. No lower extremity edema NEUROLOGIC: Awake and alert. Oriented x 3. ASSESSMENT: Chest pain, likely Non-STEMI with first troponin mildly elevated Hypertension Borderline hyperlipidemia, per patient, not on statin therapy Family history of premature coronary artery disease Morbid obesity: BMI 37.1 PLAN: Obtain 2-D echo to assess cardiac structure and function Continue aspirin and nitro paste Add Lipitor 80 mg at night and metoprolol tartrate 25 mg twice a day Continue IV heparin Hold Dyazide Check lipid panel. Check hemoglobin A1c Trend troponins Nothing by mouth at midnight. Likely cardiac cath tomorrow pending troponins. Further recommendations pending patient course Nurse practitioner note has been reviewed by physician. Signing provider agrees with the documented findings, assessment, and plan of care. Past Medical History Past Medical History: Hyperlipidemia, Hypertension Additional Past Medical History / Comment(s): childhood seizures, BILATERAL OPTIC NEUROPATHY,BLOOD IN STOOL,,KIDNEY STONE History of Any Multi-Drug Resistant Organisms: None Reported Past Surgical History: Section, Cholecystectomy, Hysterectomy, Tubal Ligation Additional Past Surgical History / Comment(s): C SECTION X 2 , LYSIS OF ADHESIONS Past Anesthesia/Blood Transfusion Reactions: No Reported Reaction Past Psychological History: Anxiety Smoking Status: Never smoker Past Alcohol Use History: None Reported Past Drug Use History: None Reported - Past Family History Father Family Medical History: Deep Vein Thrombosis (DVT) Medications and Allergies Home Medications Medication Instructions Recorded Confirmed Type Citalopram Hydrobromide [CeleXA] 20 mg PO DAILY 06/23/16 10/30/21 History Triamterene-Hctz 37.5-25Mg 1 cap PO DAILY 08/12/18 10/30/21 History [Dyazide 37.5-25 Capsule] Allergies Allergy/AdvReac Type Severity Reaction Status Date / Time amoxicillin [From Augmentin] Allergy Rash/Hives Verified 10/30/21 12:23 clavulanic acid Allergy Rash/Hives Verified 10/30/21 12:23 [From Augmentin] Pepper Allergy Rash/Hives Verified 10/30/21 12:23 azithromycin AdvReac Flushed/Sergo Verified 10/30/21 12:23 nt Physical Exam Vitals: Vital Signs Temp Pulse Resp BP Pulse Ox 10/30/21 12:33 98.2 F 68 16 133/93 99 10/30/21 11:51 70 16 142/82 98 10/30/21 11:25 98 F 74 18 134/91 97 Intake and Output 10/29/21 10/30/21 10/30/21 22:59 06:59 14:59 Other: Weight 104.326 kg Results 10/30/21 11:45 10/30/21 11:45 Cardiac Enzymes 10/30/21 10/30/21 Range/Units 11:45 11:45 AST 27 (14-36) U/L Troponin I 0.041 H* (0.000-0.034) ng/mL Coagulation 10/30/21 Range/Units 11:45 PT 11.2 (9.0-12.0) sec APTT 24.7 (22.0-30.0) sec CBC 10/30/21 Range/Units 11:45 WBC 7.0 (3.8-10.6) k/uL RBC 5.22 (3.80-5.40) m/uL Hgb 15.2 (11.4-16.0) gm/dL Hct 46.0 (34.0-46.0) % Plt Count 289 (150-450) k/uL Comprehensive Metabolic Panel 10/30/21 Range/Units 11:45 Sodium 136 L (137-145) mmol/L Potassium 3.4 L (3.5-5.1) mmol/L Chloride 98 (98-107) mmol/L Carbon Dioxide 28 (22-30) mmol/L BUN 15 (7-17) mg/dL Creatinine 0.76 (0.52-1.04) mg/dL Glucose 101 H (74-99) mg/dL Calcium 9.6 (8.4-10.2) mg/dL AST 27 (14-36) U/L ALT 21 (4-34) U/L Alkaline Phosphatase 91 (38-126) U/L Total Protein 6.9 (6.3-8.2) g/dL Albumin 4.4 (3.5-5.0) g/dL Current Medications Generic Name Dose Route Start Last Admin Trade Name Freq PRN Reason Stop Dose Admin Aspirin 325 mg 10/31/21 09:00 Aspirin 325 Mg Tab PO DAILY [facility] Heparin Sodium/Sodium Chloride 250 mls @ 10 mls/hr 10/30/21 13:00 25,000 unit/ Sodium Chloride IV .Q24H [facility] Protocol 9.585 UNITS/KG/HR Nitroglycerin 0.4 mg 10/30/21 13:12 Nitroglycerin Sl Tabs 0.4 Mg Tab SUBLINGUAL Q5M PRN Chest Pain Nitroglycerin 1 inch 10/30/21 18:00 Nitroglycerin Oint 1 Inch/Gm Packet TOPICAL Q6HR [facility] Intake and Output 10/29/21 10/30/21 10/30/21 22:59 06:59 14:59 Other: Weight 104.326 kg Patient Weight 10/31/21 06:59 Weight 104.326 kg 10/30/21 11:45 10/30/21 11:45
[2021-10-30] MEDS: METOPROLOL TARTRATE 25 MG TAB PO SCH ×2 (14:33→20:35)
[2021-10-30] MEDS: HEPARIN SOD,PORK IN 0.45% NACL 25,000 UNIT in 0.45% NACL 1 250ML.BAG IV SCH (14:37)
--- NOTE | 2021-10-30 16:38 | P.HPIM ---
History of Present Illness H&P Date: 10/30/21 Chief Complaint: Chest pain Patient is a 45-year-old female with a past medical history of hypertension and depression who presents to the ED to be evaluated for chest pain. 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 Fortunately there were other adults in the room with her who called 911. When EMS arrived they found her blood pressure to be elevated with systolic blood pressure in the 170s. She was given nitroglycerin which resolved her chest pain. Patient states that she has multiple family members with heart attacks in their 50s. In the ED patient's troponin was elevated at 0.041. She was started on heparin drip and referred for admission. Review of Systems 10 ROS reviewed and are negative except as noted in HPI Past Medical History Past Medical History: Hyperlipidemia, Hypertension Additional Past Medical History / Comment(s): childhood seizures, BILATERAL OPTIC NEUROPATHY,BLOOD IN STOOL,,KIDNEY STONE History of Any Multi-Drug Resistant Organisms: None Reported Past Surgical History: Section, Cholecystectomy, Hysterectomy, Tubal Ligation Additional Past Surgical History / Comment(s): C SECTION X 2 , LYSIS OF ADHESI ONS Past Anesthesia/Blood Transfusion Reactions: No Reported Reaction Past Psychological History: Anxiety Smoking Status: Never smoker Past Alcohol Use History: None Reported Past Drug Use History: None Reported - Past Family History Father Family Medical History: Deep Vein Thrombosis (DVT) Medications and Allergies Home Medications Medication Instructions Recorded Confirmed Type Citalopram Hydrobromide [CeleXA] 20 mg PO DAILY 06/23/16 10/30/21 History Triamterene-Hctz 37.5-25Mg 1 cap PO DAILY 08/12/18 10/30/21 History [Dyazide 37.5-25 Capsule] Allergies Allergy/AdvReac Type Severity Reaction Status Date / Time amoxicillin [From Augmentin] Allergy Rash/Hives Verified 10/30/21 12:23 clavulanic acid Allergy Rash/Hives Verified 10/30/21 12:23 [From Augmentin] Pepper Allergy Rash/Hives Verified 10/30/21 12:23 azithromycin AdvReac Flushed/Serog Verified 10/30/21 12:23 nt Physical Exam Osteopathic Statement: *. No significant issues noted on an osteopathic structural exam other than those noted in the History and Physical/Consult. Vitals: Vital Signs Temp Pulse Resp BP Pulse Ox 10/30/21 14:26 73 16 123/85 97 10/30/21 12:33 98.2 F 68 16 133/93 99 10/30/21 11:51 70 16 142/82 98 10/30/21 11:25 98 F 74 18 134/91 97 Intake and Output 10/30/21 10/30/21 10/30/21 06:59 14:59 22:59 Other: Weight 104.326 kg General: [Alert and oriented, well nourished, no acute distress]. Eye: [PERRL, EOMI, normal conjunctiva]. HENT: [Normocephalic, clear tympanic membranes, normal hearing, moist oral mucosa, no scleral icterus, no sinus tenderness]. Neck: [Supple, non-tender, no carotid bruits, no JVD, no lymphadenopathy]. Lungs: [Clear to auscultation and percussion, non-labored respiration]. Heart: [Normal rate, regular rhythm, no murmur, gallop or edema]. Abdomen: [Soft, non-tender, non-distended, normal bowel sounds, no masses]. Musculoskeletal: [Normal range of motion and strength, no tenderness or swelling]. Skin: [Skin is warm, dry and pink, no rashes or lesions]. Neurologic: [Awake, alert, and oriented X3, CN II-XII intact]. Psychiatric: [Cooperative, appropriate mood and affect]. Results CBC & Chem 7: 10/30/21 11:45 10/30/21 11:45 Labs: Abnormal Lab Results - Last 24 Hours (Table) 10/30/21 10/30/21 10/30/21 Range/Units 11:45 11:45 14:48 Sodium 136 L (137-145) mmol/L Potassium 3.4 L (3.5-5.1) mmol/L Glucose 101 H (74-99) mg/dL Troponin I 0.041 H* 0.035 H* (0.000-0.034) ng/mL Assessment and Plan Assessment: Chest pain Trend troponins Started on heparin drip Resume aspirin and Nitropaste Patient started on Lipitor and metoprolol Cardiology on board Check lipid panel hemoglobin A1c Nothing by mouth for possible heart cath tomorrow Hypertension Patient started on metoprolol We'll hold Dyazide for now Depression Resume home meds Obesity Patient counseled on weight loss DVT prophylaxis: Heparin drip Focal
[2021-10-30] MEDS: NITROGLYCERIN OINT 1 INCH/GM PACKET TOPICAL SCH ×2 (20:05→23:00)
[2021-10-30] MEDS: ATORVASTATIN 80 MG TAB PO SCH (20:35)
[2021-10-30] MEDS ORDERED: HEPARIN SODIUM 1,000 UN/ML (10ML VL) IVP PRN (22:13)
[2021-10-30] MEDS: ACETAMINOPHEN TAB 325 MG TAB PO PRN (23:00)
[2021-10-31] MEDS: NITROGLYCERIN OINT 1 INCH/GM PACKET TOPICAL SCH ×2 (06:17→11:21)
[2021-10-31] MEDS: ACETAMINOPHEN TAB 325 MG TAB PO PRN ×2 (06:22→20:06)
[2021-10-31 07:05] LABS: African American GFR (CKD) >90 (>60 ml/min/1.73 sqM); Anion Gap 9 mmol/L; Blood Urea Nitrogen 20 mg/dL (7-17); Calcium 9.1 mg/dL (8.4-10.2); Carbon Dioxide 28 mmol/L (22-30); Chloride 100 mmol/L (98-107); Glucose 110 mg/dL (74-99); Non-African American GFR(CKD) >90 (>60 ml/min/1.73 sqM); Potassium 3.9 mmol/L (3.5-5.1); Sodium 137 mmol/L (137-145)
[2021-10-31] MEDS: ASPIRIN 81 MG PO SCH (07:46)
[2021-10-31] MEDS: CITALOPRAM HYDROBROMIDE 20 MG TAB PO SCH (07:46)
[2021-10-31] MEDS: METOPROLOL TARTRATE 25 MG TAB PO SCH ×2 (07:47→20:06)
[2021-10-31] MEDS ORDERED: ASPIRIN 325 MG TAB PO SCH (09:00)
[2021-10-31] MEDS ORDERED: ALPRAZolam 0.5 MG TAB PO PRN (11:17)
[2021-10-31] MEDS ORDERED: ASPIRIN 325 MG TAB PO STA (11:17)
[2021-10-31] MEDS ORDERED: NITROGLYCERIN SL TABS 0.4 MG TAB SUBLINGUAL PRN (11:17)
[2021-10-31] MEDS ORDERED: ATORVASTATIN 80 MG TAB PO STA (11:17)
[2021-10-31] MEDS ORDERED: ALPRAZolam 0.25 MG TAB PO PRN (11:17)
[2021-10-31] MEDS: ATORVASTATIN 80 MG TAB PO SCH (11:20)
[2021-10-31] MEDS: HEPARIN SOD,PORK IN 0.45% NACL 25,000 UNIT in 0.45% NACL 1 250ML.BAG IV SCH (11:22)
[2021-10-31 12:20] LABS: Chol/HDL Ratio 6.99 Ratio
[2021-10-31] MEDS ORDERED: VERAPAMIL 2.5 MG/ML 2 ML AMP ONE (12:36)
[2021-10-31] MEDS ORDERED: fentaNYL (PF) 50 MCG/ML 2 ML AMP ONE (12:51)
[2021-10-31] MEDS ORDERED: HEPARIN SODIUM 1,000 UN/ML (10ML VL) ONE (12:51)
[2021-10-31] MEDS ORDERED: SODIUM CHLORIDE 0.9% 1,000 ML IV ONE (13:06)
[2021-10-31] MEDS ORDERED: fentaNYL (PF) 50 MCG/ML 2 ML AMP IV ONE (13:18)
[2021-10-31] MEDS ORDERED: LIDOCAINE 1% INJ 10MG/ML (30 ML VIAL-PF) SQ ONE (13:23)
[2021-10-31] MEDS ORDERED: MIDAZOLAM 2 MG/2 ML VIAL IV ONE (13:24)
[2021-10-31] MEDS ORDERED: VERAPAMIL SYRINGE (5 MG/10 ML) INTRAARTER ONE (13:28)
[2021-10-31] MEDS ORDERED: HEPARIN SODIUM 1,000 UN/ML (10ML VL) IV ONE (13:31)
[2021-10-31] MEDS ORDERED: IOPAMIDOL-370 125ML BTL INJ ONE (13:38)
[2021-10-31] MEDS ORDERED: CLOPIDOGREL 75 MG TAB ONE (13:39)
[2021-10-31] MEDS ORDERED: CLOPIDOGREL 75 MG TAB PO ONE (13:39)
[2021-10-31] MEDS ORDERED: RX INFO: IV CONTRAST WAS GIVEN 1 EACH MISC MISCELLANE PRN (13:43)
[2021-10-31] MEDS ORDERED: SODIUM CHLORIDE 0.9% 1,000 ML IV SCH (13:45)
--- NOTE | 2021-10-31 13:50 | P.CARDCATH ---
Date of Procedure: 10/31/21 Description of Procedure: Cardiac Catheterization: The patient is a 45-year-old female with no prior documented history of CAD who presented with symptoms of chest discomfort and mild troponin elevation. Recommendations were made regarding cardiac catheterization, the risks and the complications were discussed with the patient who is in full understanding and agreement. Procedure Description: Patient was brought to sugar laboratory assistant in fasting semi-sedated state after receiving Fentanyl and Benadryl achieiving moderate conscious sedated state. Using Xylocaine Anesthesia and Seldinger technique, a 6-Kazakh sheath was introduced in the right radial artery . Subsequently, selective coronary angiography was performed using a 5-Kazakh 3.5 bend [place] catheter. Multiple views of the coronary artery including hemiaxial views were obtained. The 5-Kazakh Pigtail catheter was used to cross the aortic valve and LVEDP was calculated. Following that, catheter and sheath were removed. Hemostasis was obtained with deployment of TR band . There was no immediate complication. Patient was returned to room in stable condition. Of note, the patient received a total of 5000 units of intravenous heparin as well as intra-arterial verapamil. Findings: Left main: This is a large size vessel, bifurcating LAD and left circumflex, left main has no high-grade stenosis LAD: This is a large size vessel, reaching to the apex giving rise to a large diagonal branch, there is slow flow in the mid and distal LAD with no obstructive disease Left circumflex: This is a large nondominant vessel, giving rise to large obtuse marginal branch that has no evidence of high-grade stenosis RCA: This is a large dominant vessel, bifurcating into PDA and PLV, the RCA has no evidence of high-grade stenosis Left Ventriculogram: Not performed Hemodynamics: There was no gradient across the aortic valve , LVEDP was 12-14 mmHg Conclusion: 1. Slow flow in the mid and distal LAD with no evidence of epicardial disease 2. Large caliber vessels 3. Right dominance 4. Normal EDP Recommendations: The patient's anatomy shows no evidence of obstructive disease with slow flow in the mid and distal LAD. This finding could represent microvascular disease. Her presentation is consistent with [place]. I would recommend medical therapy and depending on her progress further recommendations will be made The findings and the recommendations were discussed with the patient and the family and they were in full understanding and agreement. Duration of sedation is 15 minutes.
--- NOTE | 2021-10-31 15:22 | P.PN ---
Subjective Progress Note Date: 10/31/21 This morning patient says that she feels well. She is denying any chest pain. Objective - Vital Signs Vital signs: Vital Signs Temp 97.6 F 10/31/21 07:43 Pulse 68 10/31/21 14:28 Resp 18 10/31/21 14:28 BP 114/73 10/31/21 14:28 Pulse Ox 94 L 10/31/21 14:28 FiO2 21 10/30/21 20:07 Intake & Output 10/30/21 10/31/21 10/31/21 18:59 06:59 18:59 Intake Total 455.333 560.393 Balance 455.333 560.393 Weight 104.326 kg Intake: IV 400 Intake, IV Titration 85.333 160.393 Amount Heparin Sod,Pork in 0.45% 85.333 160.393 NaCl 25,000 unit In 0.45 % NaCl 1 250ml.bag @ 9. 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 Psych - Calm and cooperative - Labs CBC & Chem 7: 10/30/21 11:45 10/31/21 05:43 Labs: Abnormal Lab Results - Last 24 Hours (Table) 10/30/21 10/30/21 10/31/21 Range/Units 14:48 17:53 05:43 APTT (22.0-30.0) sec BUN 20 H (7-17) mg/dL Glucose 110 H (74-99) mg/dL Troponin I 0.035 H* 0.038 H* (0.000-0.034) ng/mL Triglycerides 468.00 H (0.00-149.00) mg/dL Cholesterol 225.00 H (0.00-200.00) mg/dL HDL Cholesterol 32.20 L (40.00-60.00) mg/dL 10/31/21 Range/Units 05:43 APTT 44.1 H (22.0-30.0) sec BUN (7-17) mg/dL Glucose (74-99) mg/dL Troponin I (0.000-0.034) ng/mL Triglycerides (0.00-149.00) mg/dL Cholesterol (0.00-200.00) mg/dL HDL Cholesterol (40.00-60.00) mg/dL Assessment and Plan Assessment: Chest pain Troponins are flat Started on heparin drip Resume aspirin and Nitropaste Patient started on Lipitor and metoprolol Cardiology on board Hemoglobin A1c is 5.7 Patient scheduled for heart catheterization today Hypertension Patient started on metoprolol We'll hold Dyazide for now Depression Resume home meds Obesity Patient counseled on weight loss DVT prophylaxis: Heparin drip Focal
--- NOTE | 2021-10-31 17:02 | CA ---
Transthoracic Echo Report Name: Montse Cervantes Age: 45 Gender: F : 1975 Exam Date: 10/31/2021 12:28 Exam Location: [place] [facility] Ht (in): 66 Wt (lb): 230 Ordering Physician: Rosa Isela Nguyen Attending/Referring Phys: [id number], Wendy Digital Forensic Examiner Fidelia Paniagua RDCS Procedure CPT: Indications: CP, Elevated troponins Cardiac Hx: Technical Quality: Fair Contrast 1: Total Dose (mL): Contrast 2: Total Dose (mL): MEASUREMENTS (Male / Female) Normal Values 2D ECHO LV Diastolic Diameter PLAX 4.2 cm 4.2 - 5.9 / 3.9 - 5.3 cm LV Systolic Diameter PLAX 2.7 cm IVS Diastolic Thickness 1.2 cm 0.6 - 1.0 / 0.6 - 0.9 cm LVPW Diastolic Thickness 1.1 cm 0.6 - 1.0 / 0.6 - 0.9 cm LV Relative Wall Thickness 0.6 RV Internal Dim ED PLAX 3.2 cm LA Systolic Diameter LX 3.7 cm 3.0 - 4.0 / 2.7 - 3.8 cm M-MODE Aortic Root Diameter MM 2.9 cm MV E Point Septal Separation 0.6 cm AV Cusp Separation MM 1.8 cm DOPPLER AV Peak Velocity 144.8 cm/s AV Peak Gradient 8.4 mmHg MV Area PHT 2.4 cm??? Mitral E Point Velocity 74.0 cm/s Mitral A Point Velocity 71.6 cm/s Mitral E to A Ratio 1.0 MV Deceleration Time 314.6 ms MV E' Velocity 10.2 cm/s Mitral E to MV E' Ratio 7.2 TR Peak Velocity 227.6 cm/s TR Peak Gradient 20.7 mmHg Right Ventricular Systolic Press 25.7 mmHg FINDINGS Left Ventricle Left ventricular ejection fraction is estimated at 55-60 %. Left ventricular cavity size normal. Mild left ventricular hypertrophy. Right Ventricle Normal right ventricular size and function. Right ventricular systolic pressure within normal limits. Right Atrium Normal right atrial size. Left Atrium Normal left atrial size. Mitral Valve Structurally normal mitral valve. No mitral stenosis, or prolapse. Trace mitral regurgitation Aortic Valve Trileaflet aortic valve. No aortic valve stenosis or regurgitation. Tricuspid Valve Trace to mild tricuspid regurgitation.structurally normal tricuspid valve. Pulmonic Valve Structurally normal pulmonic valve. Pericardium Normal pericardium. No pericardial effusion. Aorta Normal size aortic root and proximal ascending aorta. CONCLUSIONS 1. Normal left ventricle size and systolic function 2. Trace mitral and tricuspid regurgitation 3. No pericardial effusion Previewed by: Dr. Dannie Jacobson MD (Electronically Signed) Final Date: 31 October 2021 17:01
[2021-11-01 03:52] VITALS: TEMP 98.1
[2021-11-01] MEDS ORDERED: HEPARIN SODIUM,PORCINE 10,000 UNIT in SODIUM CHLORIDE 0.9% 1,000 ML IRRIGATION PRN (07:00)
[2021-11-01] MEDS ORDERED: HEPARIN SODIUM,PORCINE 2,500 UNIT in SODIUM CHLORIDE 0.9% 250 ML IRRIGATION PRN (07:00)
[2021-11-01] MEDS: ASPIRIN 81 MG PO SCH (08:14)
[2021-11-01] MEDS: CITALOPRAM HYDROBROMIDE 20 MG TAB PO SCH (08:14)
[2021-11-01] MEDS: METOPROLOL TARTRATE 25 MG TAB PO SCH (08:14)
[2021-11-01 08:19] VITALS: RESP 16
[2021-11-01 08:58] LABS: African American GFR (CKD) >90 (>60 ml/min/1.73 sqM); Anion Gap 6 mmol/L; Blood Urea Nitrogen 15 mg/dL (7-17); Calcium 8.6 mg/dL (8.4-10.2); Carbon Dioxide 26 mmol/L (22-30); Chloride 104 mmol/L (98-107); Glucose 103 mg/dL (74-99); Non-African American GFR(CKD) >90 (>60 ml/min/1.73 sqM); Potassium 3.8 mmol/L (3.5-5.1); Sodium 136 mmol/L (137-145)
[2021-11-01] MEDS ORDERED: CLOPIDOGREL 75 MG TAB PO SCH (09:00)
[2021-11-01] MEDS ORDERED: ISOSORBIDE MONONITRATE ER 30 MG TAB.ER.24H PO SCH (09:00)
--- NOTE | 2021-11-01 11:16 | P.PN ---
Subjective Progress Note Date: 11/01/21 PROGRESS NOTE The patient is a 45-year-old female who presented with symptoms of chest discomfort with mild troponin elevation and no significant EKG changes. She underwent cardiac catheterization and found to have no obstructive epicardial disease with slow flow in the LAD. Her left ventricle systolic function was normal by echocardiography. She's feeling well this morning, she denies any chest discomfort, dizziness or palpitations. She is ambulating without difficulty. Medications: Aspirin, Plavix 75 mg daily, Lipitor 80 mg daily, isosorbide mononitrate 30 mg daily, metoprolol 25 mg twice a day PHYSICAL EXAMINATION: Blood pressure 129/80 heart rate 70 LUNGS: Clear to auscultation HEART: Regular rate and rhythm, S1, S2. No S3. No systolic murmur ABDOMEN: Soft, nontender, no organomegaly EXTREMETIES: No edema, right radial pulse intact LAB: Potassium 3.8, BUN 15, creatinine 0.72 IMPRESSION: 1. Chest discomfort with elevation of troponin consistent with non-STEMI, no evidence of epicardial obstructive disease consistent with [place] and probable microvascular disease 2. History of hypertension 3. Hyperlipidemia 4. Obesity PLAN: 1. Continue present therapy 2. Increase physical activity 3. Probable discharge home today 4. And follow-up in one week Objective - Vital Signs Vital signs: Vital Signs Temp 98.1 F 11/01/21 03:30 Pulse 78 11/01/21 08:12 Resp 16 11/01/21 08:12 BP 129/81 11/01/21 08:12 Pulse Ox 96 11/01/21 08:12 FiO2 21 10/30/21 20:07 Intake & Output 10/31/21 11/01/21 11/01/21 18:59 06:59 18:59 Intake Total 560.393 500 Balance 560.393 500 Intake: IV 400 Intake, IV Titration 160.393 0 Amount Heparin Sod,Pork in 0.45% 160.393 NaCl 25,000 unit In 0.45 % NaCl 1 250ml.bag @ 9. 585 UNITS/KG/HR 10 mls/hr IV .Q24H [facility] Rx#: [id number] Sodium Chloride 0.9% 1, 0 000 ml @ 0 mls/hr IV .STK -MED ONE Rx#:[id number] Sodium Chloride 0.9% 1, 0 000 ml @ 75 mls/hr IV . [id number] [facility] Rx#:[id number] Oral 500 Other: Voiding Method Toilet Toilet # Voids 2 1 - Labs CBC & Chem 7: 10/30/21 11:45 11/01/21 07:34 Labs: Abnormal Lab Results - Last 24 Hours (Table) 10/31/21 11/01/21 Range/Units 05:43 07:34 Sodium 136 L (137-145) mmol/L BUN 20 H (7-17) mg/dL Glucose 110 H 103 H (74-99) mg/dL Triglycerides 468.00 H (0.00-149.00) mg/dL Cholesterol 225.00 H (0.00-200.00) mg/dL HDL Cholesterol 32.20 L (40.00-60.00) mg/dL
[2021-11-01 11:47] VITALS: BP 110/65; PULSE 67
--- NOTE | 2021-11-01 11:52 | P.DS ---
Providers Date of admission: 10/30/21 13:25 Expected date of discharge: 11/01/21 Attending physician: Toney Mazariegos MD Consults: 10/30/21 13:13 Consult Physician Urgent Consulting Provider: [facility] Consult Reason/Comments: Unstable angina Do you want consulting provider notified?: Yes Primary care physician: Janice Giraldo [facility] Course: Discharge Diagnosis: Chest pain: Obstructive coronary disease ruled out Hypertension Depression Obesity Hospital Course: Patient is a 45-year-old female with a past medical history of hypertension and depression who presented to the ED for evaluation of chest pain. Patient was found to have elevated troponin. She was started on heparin drip. Patient had a left heart catheterization done that showed slow flow in the mid and distal LAD. No obstructive coronary artery disease was seen. Per cardiology this could be due to microvascular disease. Cardiology recommended medical treatment. Patient started on Plavix, aspirin, statin, Imdur and metoprolol Patient seen and examined at bedside.[] Vital signs reviewed and stable. General: [non toxic], [no distress], [appears at stated age] Derm: [warm], [dry] Head: [atraumatic], [normocephalic], [symmetric] Eyes: [EOMI], [no lid lag], [anicteric sclera] Mouth: [no lip lesion], [mucus membranes moist] Cardiovascular: [S1S2 reg], [no murmur], [positive posterior tibial pulse bilateral], Lungs: [CTA bilateral], [no rhonchi, no rales] , [no accessory muscle use] Abdominal: [soft], [ nontender to palpation], [no guarding], [no appreciable organomegaly] Ext: [no gross muscle atrophy], [no edema], [no contractures] Neuro: [ CN II-XI grossly intact], [no focal neuro deficits] Psych: [Alert], [oriented], [appropriate affect] A total of [33] minutes of time were spent preparing this complex discharge summary . Patient Condition at Discharge: Good Plan - Discharge Summary Discharge Rx Participant: Yes New Discharge Prescriptions: New Metoprolol Tartrate [Lopressor] 25 mg PO BID #180 tab Aspirin 81 mg PO DAILY tab Isosorbide Mononitrate ER [Imdur] 30 mg PO DAILY #90 tab Atorvastatin [Lipitor] 80 mg PO HS #90 tab Clopidogrel [Plavix] 75 mg PO DAILY #90 tab Continue Citalopram Hydrobromide [CeleXA] 20 mg PO DAILY Discontinued Triamterene-Hctz 37.5-25Mg [Dyazide 37.5-25 Capsule] 1 cap PO DAILY Discharge Medication List Citalopram Hydrobromide [CeleXA] 20 mg PO DAILY 06/23/16 [History] Aspirin 81 mg PO DAILY tab 11/01/21 [Rx] Atorvastatin [Lipitor] 80 mg PO HS #90 tab 11/01/21 [Rx] Clopidogrel [Plavix] 75 mg PO DAILY #90 tab 11/01/21 [Rx] Isosorbide Mononitrate ER [Imdur] 30 mg PO DAILY #90 tab 11/01/21 [Rx] Metoprolol Tartrate [Lopressor] 25 mg PO BID #180 tab 11/01/21 [Rx] Follow up Appointment(s)/Referral(s): Dannie Jacobson MD [STAFF PHYSICIAN] - 1 Week Janice Giraldo DO [Primary Care Provider] - 1-2 days Patient Instructions/Handouts: Heart Attack (DC), Chest Pain (DC), Heart Catheterization (DC) Discharge Disposition: HOME SELF-CARE
== END 2021-11-01 12:50 | disposition home or self-care (01) ==
LOC: EC 11:23 → 3SCARD 13:25
PROVIDERS: ADMIT Internal Medicine; ATTEND Internal Medicine
DX: I20.0 Unstable angina (principal); I10 Essential (primary) hypertension; E78.5 Hyperlipidemia, unspecified; F41.9 Anxiety disorder, unspecified; F32.A Depression, unspecified; E66.01 Morbid (severe) obesity due to excess calories; Z68.37 Body mass index [BMI] 37.0-37.9, adult; Z79.82 Long term (current) use of aspirin; Z79.02 Long term (current) use of antithrombotics/antiplatelets; Z79.899 Other long term (current) drug therapy; Z88.0 Allergy status to penicillin; Z88.1 Allergy status to other antibiotic agents; Z82.49 Family history of ischemic heart disease and other diseases of the circulatory system
CPT/HCPCS: 96366 ×3; 96376; 96365; 96375; 99285; 36415; 94760; 93005; 93306; 93458; 80061; 80053; 80048 ×2; 83735; 84484; 85025; 85610; 85730 ×3; 83721; 83036; 71046; G0378 ×3; J2250; J2001; J3010; J1644 ×4; Q9967

== ENCOUNTER 2022-02-11 20:38 | Observation (INO) | payer BC ==
[2022-02-11 21:20] LABS: Basophils # (A) 0.1 k/uL (0-0.2); Basophils % (A) 1 %; Eosinophils # (A) 0.4 k/uL (0-0.7); Eosinophils % (A) 4 %; HCT 41.3 % (34.0-46.0); Lymphocytes # (A) 2.4 k/uL (1.0-4.8); Lymphocytes % (A) 28 %; MCH 29.3 pg (25.0-35.0); MCV 86.1 fL (80.0-100.0); Mean Platelet Volume 8.1; Monocytes # (A) 0.4 k/uL (0-1.0); Monocytes % (A) 5 %; Neutrophils % (A) 60 %; Platelet Count 233 k/uL (150-450); RDW 12.9 % (11.5-15.5); WBC 8.4 k/uL (3.8-10.6)
[2022-02-11 21:29] LABS: ALT 20 U/L (4-34); AST 19 U/L (14-36); African American GFR (CKD) >90 (>60 ml/min/1.73 sqM); Albumin 3.8 g/dL (3.5-5.0); Alkaline Phosphatase 111 U/L (38-126); Anion Gap 5 mmol/L; Blood Urea Nitrogen 15 mg/dL (7-17); Calcium 9.2 mg/dL (8.4-10.2); Carbon Dioxide 27 mmol/L (22-30); Chloride 104 mmol/L (98-107); Glucose 106 mg/dL (74-99); Magnesium 2.2 mg/dL (1.6-2.3); Non-African American GFR(CKD) >90 (>60 ml/min/1.73 sqM); Potassium 4.2 mmol/L (3.5-5.1); Prothrombin Time 10.8 sec (9.0-12.0); Sodium 136 mmol/L (137-145); Total Bilirubin 0.4 mg/dL (0.2-1.3); Total Protein 6.2 g/dL (6.3-8.2)
[2022-02-11] MEDS ORDERED: NITROGLYCERIN OINT 1 INCH/GM PACKET TOPICAL STA (21:38)
--- NOTE | 2022-02-11 21:42 | XR ---
EXAMINATION: XR chest 2V: 02/11/2022 9:16 PM CLINICAL INDICATION: Chest Pain TECHNIQUE: Frontal and lateral views. COMPARISON: 10/30/2021 FINDINGS: The overlying soft tissues are prominent. Lungs appear to be clear, as seen. The pleural spaces are negative. The cardiac silhouette is not enlarged. The remainder of the mediastinal silhouette is unremarkable. The skeletal structures and soft tissues are negative for acute findings. IMPRESSION: No acute process.
[2022-02-11] MEDS ORDERED: NALOXONE 0.4 MG/ML 1 ML VIAL IV PRN (23:03)
--- NOTE | 2022-02-11 23:03 | ED ---
Chest Pain HPI - General Chief Complaint: Chest Pain Stated Complaint: Chest Pain Time Seen by Provider: 02/11/22 20:50 Source: patient, EMS Mode of arrival: EMS Limitations: no limitations - History of Present Illness Initial Comments: 46-year-old female with past medical history of microvascular disease who presents emergency department reporting chest pain. He states that she has had intermittent chest pain over the past 3 days. Described as a pressure sensation without radiation. Has mild associated shortness of breath and palpitations. Patient has felt this way once previously, several months ago. Patient had similar symptoms and came into the emergency department. She did have an elevation in her troponin. She was admitted and had a heart cath. He diagnosed her with microvascular disease. They placed her on Plavix, statin and beta pearl. She states she has been taking her medications as directed however began developing similar symptoms. She called EMS. They did place her on a registered nurse post partum. She was given aspirin and a nitro. Reports that nitro did alleviate her symptoms. She states she is pain-free at this time. Denies fevers, chills or cough. No numbness, tingling or weakness in her extremities. No other alleviating, Perceptin or modifying factors - Related Data Home Medications Medication Instructions Recorded Confirmed Citalopram Hydrobromide [CeleXA] 20 mg PO DAILY 06/23/16 02/12/22 Previous Rx's Medication Instructions Recorded Aspirin 81 mg PO DAILY tab 11/01/21 Atorvastatin [Lipitor] 80 mg PO HS #90 tab 11/01/21 Clopidogrel [Plavix] 75 mg PO DAILY #90 tab 11/01/21 Isosorbide Mononitrate ER [Imdur] 30 mg PO DAILY #90 tab 11/01/21 Metoprolol Tartrate [Lopressor] 25 mg PO BID #180 tab 11/01/21 Nitroglycerin Sl Tabs [Nitrostat] 0.4 mg SUBLINGUAL Q5M PRN #100 tab 02/12/22 Allergies Allergy/AdvReac Type Severity Reaction Status Date / Time amoxicillin [From Augmentin] Allergy Rash/Hives Verified 10/30/21 12:23 clavulanic acid Allergy Rash/Hives Verified 10/30/21 12:23 [From Augmentin] Pepper Allergy Rash/Hives Verified 10/30/21 12:23 azithromycin AdvReac Flushed/Sergo Verified 10/30/21 12:23 nt Review of Systems ROS Statement: Those systems with pertinent positive or pertinent negative responses have been documented in the HPI. ROS Other: All systems not noted in ROS Statement are negative. EKG Findings - EKG Comments: EKG Findings:: EKG demonstrates sinus rhythm with rate of 85. WA interval 158. QRS 80. QTC of 396. No acute ST segment elevations or depressions Past Medical History Past Medical History: Hyperlipidemia, Hypertension Additional Past Medical History / Comment(s): childhood seizures, BILATERAL OPTIC NEUROPATHY,BLOOD IN STOOL,,KIDNEY STONE History of Any Multi-Drug Resistant Organisms: None Reported Past Surgical History: Section, Cholecystectomy, Hysterectomy, Tubal Ligation Additional Past Surgical History / Comment(s): C SECTION X 2 , LYSIS OF ADHESIONS Past Anesthesia/Blood Transfusion Reactions: No Reported Reaction Past Psychological History: Anxiety Smoking Status: Never smoker Past Alcohol Use History: None Reported Past Drug Use History: None Reported - Past Family History Father Family Medical History: Deep Vein Thrombosis (DVT) General Exam Limitations: no limitations General appearance: alert, in no apparent distress Head exam: Present: atraumatic, normocephalic, normal inspection Eye exam: Present: normal appearance, PERRL, EOMI. Absent: scleral icterus, conjunctival injection, periorbital swelling ENT exam: Present: normal exam, mucous membranes moist Neck exam: Present: normal inspection. Absent: tenderness, meningismus, lymphadenopathy Respiratory exam: Present: normal lung sounds bilaterally. Absent: respiratory distress, wheezes, rales, rhonchi, stridor Cardiovascular Exam: Present: regular rate, normal rhythm, normal heart sounds. Absent: systolic murmur, diastolic murmur, rubs, gallop, clicks GI/Abdominal exam: Present: soft, normal bowel sounds. Absent: distended, tenderness, guarding, rebound, rigid Extremities exam: Present: normal inspection, full ROM, normal capillary refill. Absent: tenderness, pedal edema, joint swelling, calf tenderness Back exam: Present: normal inspection Neurological exam: Present: alert, oriented X3, CN II-XII intact Psychiatric exam: Present: normal affect, normal mood Skin exam: Present: warm, dry, intact, normal color. Absent: rash Course Vital Signs 02/11/22 02/11/22 02/11/22 20:46 21:03 22:28 Temperature 97.6 F Pulse Rate 88 84 Pulse Rate [ 88 Apical] Respiratory 16 16 Rate Blood Pressure 147/99 128/80 O2 Sat by Pulse 99 98 Oximetry 02/12/22 02/12/22 02/12/22 01:55 03:49 06:13 Temperature 97.9 F Pulse Rate 85 80 66 Pulse Rate [ Apical] Respiratory 16 16 17 Rate Blood Pressure 140/89 124/69 O2 Sat by Pulse 94 L 97 97 Oximetry 02/12/22 16:44 Temperature 98.6 F Pulse Rate 66 Pulse Rate [ Apical] Respiratory 18 Rate Blood Pressure 127/80 O2 Sat by Pulse 100 Oximetry Chest Pain MDM - MDM Was pt. sent in by a medical professional or institution? No Did you speak to anyone other than the patient for history? No Did you review nursing and triage notes? Yes and I agree Were old charts reviewed? I reviewed patients previous hospitalization and cardiac cath results Differential Diagnosis? STEMI, NSTEMI, ACS, coronary vasospasm, pleurisy, chest wall strain EKG interpreted by me (3pts min.)? Yes X-rays interpreted by me (1pt min.)? yes CT interpreted by me (1pt min.)? no U/S interpreted by me (1pt. min.)? no What testing was considered but not performed? (CT, X-rays, U/S, labs)? Why? none What meds were considered but not given? Why? none Did you discuss the management of the patient with other professionals? admitting physician dr sampson Did you reconcile home meds? yes Was smoking cessation discussed for >3mins.? no Was critical care preformed (if so, how long)? no Were there social determinants of health that impacted care today? How? (Homelessness, low income, unemployed, alcoholism, drug addiction, transportat ion, low edu. Level, literacy, decrease access to med. care, assisted, rehab)? none Was there de-escalation of care discussed even if they declined? (Discuss DNR or withdrawal of care, Hospice)? no What co-morbidities impacted this encounter? (DM, HTN, Smoking, COPD, CAD, Cancer, CVA, Hep., AIDS, mental health diagnosis, sleep apnea, morbid obesity)? htn, high cholesterol Was patient admitted / discharged? Upon arrival patient was placed in room 27. A thorough history and physical exam was performed. She is placed on continuous pulse ox and cardiac monitoring. 12-lead EKG is obtained. Laboratory studies are conducted. Patient's first troponin is negative. Due to her history did recommend admission. Spoke with Dr. Sampson who agreed to admit the patient. Undiagnosed new problem with uncertain prognosis? yes Drug Therapy requiring intensive monitoring for toxicity (Heparin, Nitro, Insulin, Cardizem)? nitropaste Were any procedures done? no Diagnosis/symptom? acute chest pain Acute, or Chronic, or Acute on Chronic? acute Uncomplicated (without systemic symptoms) or Complicated (systemic symptoms)? complicated Side effects of treatment? headache Exacerbation, Progression, or Severe Exacerbation] no Poses a threat to life or bodily function? yes Disposition Clinical Impression: Chest pain Disposition: ADMITTED IP TO THIS [facility] Condition: Stable Is patient prescribed a controlled substance at d/c from ED?: No Time of Disposition: 23:02 Decision to Admit Reason: Admit from EC Decision Date: 02/11/22 Decision Time: 23:03
[2022-02-12] MEDS ORDERED: ASPIRIN 325 MG TAB PO STA (00:50)
--- NOTE | 2022-02-12 00:51 | P.HPIM ---
History of Present Illness H&P Date: 02/11/22 The patient is a 46-year-old female with a PMH of coronary artery disease who presented to the emergency room with complaints of chest discomfort. The patient reports that she has been experiencing intermittent chest discomfort over the past 2-3 days, aching and pressure like in nature, with associated palpitations and occasional shortness of breath. The patient states that she had similar symptoms in the past when she had presented to the emergency room in 10/2022 and was diagnosed with microvascular disease with maximal medical therapy initiated. The patient reports that her pain resolved after receiving supplemental nitroglycerin and noted being pain free at the time of interview. She reported occasional mild palpitations but denied any additional complaints. That experiencing lower extremity swelling, or pain. She denied fever, chills, cough. Chest x-ray in the emergency room was unremarkable. Laboratory evaluation revealed a troponin of less than 0.012 with proBNP 21. Review of systems: Pertinent positives and negatives as discussed in HPI, a complete review of systems was performed and all other systems are negative. Physical examination: General: non toxic, no distress, appears at stated age, obese Derm: no unusual rashes/lesions, warm Head: atraumatic, normocephalic, symmetric Eyes: EOMI, no lid lag, anicteric sclera, pupils equal round reactive to light ENT: Nose and ears atraumatic Neck: No cervical lymphadenopathy, trachea midline, supple Mouth: no lip lesion, mucus membranes moist Cardiovascular: S1S2 reg, no murmur, positive dorsalis pedis pulse bilateral, no edema Lungs: CTA bilateral, no rhonchi, no rales, no accessory muscle use Abdominal: soft, nontender to palpation, no guarding Ext: muscle strength 5 out of 5 in all 4 extremities grossly, no gross muscle atrophy, no contractures, Neuro: CN II-XI grossly intact, no gross focal neuro deficits Psych: Alert, oriented, appropriate affect Assessment/plan Chest pain, rule out ACS -Trend troponin -Cardiology consulted -Cardiac monitoring -Continue with aspirin, statin DVT prophylaxis -Heparin subcu The patient is admitted with an anticipated less than 2 midnight stay for evaluation of chest pain CODE STATUS: Full Code Discussed with: Patient Anticipated discharge date: in am Anticipated discharge place: Home Past Medical History Past Medical History: Hyperlipidemia, Hypertension Additional Past Medical History / Comment(s): childhood seizures, BILATERAL OPTIC NEUROPATHY,BLOOD IN STOOL,,KIDNEY STONE History of Any Multi-Drug Resistant Organisms: None Reported Past Surgical History: Section, Cholecystectomy, Hysterectomy, Tubal Ligation Additional Past Surgical History / Comment(s): C SECTION X 2 , LYSIS OF ADHESIONS Past Anesthesia/Blood Transfusion Reactions: No Reported Reaction Past Psychological History: Anxiety Smoking Status: Never smoker Past Alcohol Use History: None Reported Past Drug Use History: None Reported - Past Family History Father Family Medical History: Deep Vein Thrombosis (DVT) Medications and Allergies Home Medications Medication Instructions Recorded Confirmed Type Citalopram Hydrobromide [CeleXA] 20 mg PO DAILY 06/23/16 10/30/21 History Aspirin 81 mg PO DAILY tab 11/01/21 Rx Atorvastatin [Lipitor] 80 mg PO HS #90 tab 11/01/21 Rx Clopidogrel [Plavix] 75 mg PO DAILY #90 tab 11/01/21 Rx Isosorbide Mononitrate ER [Imdur] 30 mg PO DAILY #90 tab 11/01/21 Rx Metoprolol Tartrate [Lopressor] 25 mg PO BID #180 tab 11/01/21 Rx Allergies Allergy/AdvReac Type Severity Reaction Status Date / Time amoxicillin [From Augmentin] Allergy Rash/Hives Verified 10/30/21 12:23 clavulanic acid Allergy Rash/Hives Verified 10/30/21 12:23 [From Augmentin] Pepper Allergy Rash/Hives Verified 10/30/21 12:23 azithromycin AdvReac Flushed/Sergo Verified 10/30/21 12:23 nt Physical Exam Vitals: Vital Signs Temp Pulse Pulse Resp BP Pulse Ox 02/11/22 22:28 84 16 128/80 98 02/11/22 21:03 88 02/11/22 20:46 97.6 F 88 16 147/99 99 Intake and Output 02/11/22 02/11/22 02/12/22 14:59 22:59 06:59 Other: Weight 106.594 kg Results CBC & Chem 7: 02/11/22 21:08 02/11/22 21:08 Labs: Abnormal Lab Results - Last 24 Hours (Table) 02/11/22 Range/Units 21:08 Sodium 136 L (137-145) mmol/L Glucose 106 H (74-99) mg/dL Total Protein 6.2 L (6.3-8.2) g/dL
[2022-02-12 04:16] LABS: African American GFR (CKD) >90 (>60 ml/min/1.73 sqM); Anion Gap 6 mmol/L; Blood Urea Nitrogen 14 mg/dL (7-17); Calcium 8.9 mg/dL (8.4-10.2); Carbon Dioxide 23 mmol/L (22-30); Chloride 107 mmol/L (98-107); Glucose 108 mg/dL (74-99); Non-African American GFR(CKD) >90 (>60 ml/min/1.73 sqM); Potassium 3.7 mmol/L (3.5-5.1); Sodium 136 mmol/L (137-145)
[2022-02-12 04:45] LABS: Basophils # (A) 0.1 k/uL (0-0.2); Basophils % (A) 1 %; Eosinophils # (A) 0.4 k/uL (0-0.7); Eosinophils % (A) 6 %; HCT 40.5 % (34.0-46.0); HGB 14.1 gm/dL (11.4-16.0); Lymphocytes # (A) 2.3 k/uL (1.0-4.8); Lymphocytes % (A) 30 %; MCH 30.1 pg (25.0-35.0); MCHC 34.9 g/dL (31.0-37.0); MCV 86.3 fL (80.0-100.0); Mean Platelet Volume 8.3; Monocytes # (A) 0.4 k/uL (0-1.0); Monocytes % (A) 6 %; Neutrophils # (A) 4.3 k/uL (1.3-7.7); Neutrophils % (A) 56 %; Platelet Count 209 k/uL (150-450); RBC 4.69 m/uL (3.80-5.40); RDW 13.3 % (11.5-15.5); WBC 7.6 k/uL (3.8-10.6)
[2022-02-12 06:15] VITALS: PULSE 66
[2022-02-12] MEDS ORDERED: HEPARIN SODIUM,PORCINE/PF 5,000 UNIT/0.5 ML SYRINGE SQ SCH (08:00)
[2022-02-12] MEDS ORDERED: METOPROLOL TARTRATE 25 MG TAB PO SCH (09:00)
[2022-02-12] MEDS ORDERED: ASPIRIN 81 MG PO SCH (09:00)
[2022-02-12] MEDS ORDERED: CLOPIDOGREL 75 MG TAB PO SCH (09:00)
[2022-02-12] MEDS ORDERED: ISOSORBIDE MONONITRATE ER 30 MG TAB.ER.24H PO SCH (09:00)
[2022-02-12] MEDS ORDERED: CITALOPRAM HYDROBROMIDE 20 MG TAB PO SCH (09:00)
--- NOTE | 2022-02-12 12:16 | P.CRDCN ---
History of Present Illness History of present illness: HISTORY OF PRESENT ILLNESS: This is a 46-year-old female with a past medical history significant for hypertension and hyperlipidemia. Patient follows in the office with Dr. Jacobson. We have been asked to see the patient in consultation for chest pain. Patient examined at the bedside. Patient states over the last month she has been feeling tired and overall unwell. The patient states that the past couple days she has been feeling her heart "jumping". She states that she has been getting sensations on the left side of her chest that feels as though she is being zapped. She states yesterday she had some chest pressure that felt like a squeezing sensation. She states that the pain went across her neck and her shoulder. She states it lasted for approximately 25 minutes and then she called EMS. The patient reports she had a few episodes overnight where she would feel like she is being zapped on the side of her chest. She does report that she received sublingual nitroglycerin by EMS which did help the pain. * EKG reveals sinus mechanism with no signs of acute ischemia * Chest xray negative for acute process * Laboratory data: WBC 7.6. Hemoglobin 14.1. Platelet count 209. Sodium 136. Potassium 3.7. BUN 14. Creatinine 0.62. Troponin negative 3. ProBNP 21. * Current home cardiac medications include aspirin 81 mg daily, Plavix 75 mg daily, Imdur 30 mg daily, Lipitor 80 mg daily, and metoprolol tartrate 25 mg twice a day * Most recent echocardiogram obtained in 2021 revealed normal ejection fraction * Cardiac catheterization history: October 2021 revealed normal coronary arteries. Slow flow in the LAD. REVIEW OF SYSTEMS: At the time of my exam: CONSTITUTIONAL: Denies fever or chills. HEENT: Denies blurred vision, vision changes, or eye pain. Denies hemoptysis CARDIOVASCULAR: Denies chest pain. Denies orthopnea. Denies PND. Denies palpitations RESPIRATORY: Denies shortness of breath. GASTROINTESTINAL: Denies abdominal pain. Denies nausea or vomiting. HEMATOLOGIC: Denies bleeding disorders. GENITOURINARY: Denies any blood in urine. SKIN: Denies pruitis. Denies rash. PHYSICAL EXAM: VITAL SIGNS: Reviewed. GENERAL: Well-developed in no acute distress. HEENT: Head is normocephalic. Pupils are equal, round. Sclerae anicteric. Mucous membranes of the mouth are moist. Neck supple. No JVD or thyromegaly LUNGS: Respirations even and unlabored. Lungs essentially clear to auscultation bilaterally. HEART: Regular rate and rhythm. S1 and S2 heard. ABDOMEN: Soft. Nondistended. Nontender. EXTREMITIES: Normal range of motion. No clubbing or cyanosis. Peripheral pu lses intact. No lower extremity edema NEUROLOGIC: Awake and alert. Oriented x 3. ASSESSMENT: Chest pain, troponins negative 3 Normal coronary arteries with slow flow in LAD, per cardiac cath in 10/2021 Palpitations Hypertension Hyperlipidemia PLAN: An acute coronary event has been ruled out No need to repeat echocardiogram Continue home cardiac medications Recommend 1 week event monitor Recommend sublingual nitro at discharge Patient is stable for discharge home from a cardiac standpoint Follow up outpatient with Dr. Jacobson Nurse practitioner note has been reviewed by physician. Signing provider agrees with the documented findings, assessment, and plan of care. Past Medical History Past Medical History: Hyperlipidemia, Hypertension Additional Past Medical History / Comment(s): childhood seizures, BILATERAL OPTIC NEUROPATHY,BLOOD IN STOOL,,KIDNEY STONE History of Any Multi-Drug Resistant Organisms: None Reported Past Surgical History: Section, Cholecystectomy, Hysterectomy, Tubal Ligation Additional Past Surgical History / Comment(s): C SECTION X 2 , LYSIS OF AD HESIONS Past Anesthesia/Blood Transfusion Reactions: No Reported Reaction Past Psychological History: Anxiety Smoking Status: Never smoker Past Alcohol Use History: None Reported Past Drug Use History: None Reported - Past Family History Father Family Medical History: Deep Vein Thrombosis (DVT) Medications and Allergies Home Medications Medication Instructions Recorded Confirmed Type Citalopram Hydrobromide [CeleXA] 20 mg PO DAILY 06/23/16 02/12/22 History Aspirin 81 mg PO DAILY tab 11/01/21 02/12/22 Rx Atorvastatin [Lipitor] 80 mg PO HS #90 tab 11/01/21 02/12/22 Rx Clopidogrel [Plavix] 75 mg PO DAILY #90 tab 11/01/21 02/12/22 Rx Isosorbide Mononitrate ER [Imdur] 30 mg PO DAILY #90 tab 11/01/21 02/12/22 Rx Metoprolol Tartrate [Lopressor] 25 mg PO BID #180 tab 11/01/21 02/12/22 Rx Nitroglycerin Sl Tabs [Nitrostat] 0.4 mg SUBLINGUAL Q5M PRN #100 tab 02/12/22 Rx Allergies Allergy/AdvReac Type Severity Reaction Status Date / Time amoxicillin [From Augmentin] Allergy Rash/Hives Verified 10/30/21 12:23 clavulanic acid Allergy Rash/Hives Verified 10/30/21 12:23 [From Augmentin] Pepper Allergy Rash/Hives Verified 10/30/21 12:23 azithromycin AdvReac Flushed/Sergo Verified 10/30/21 12:23 nt Physical Exam Vitals: Vital Signs Temp Pulse Pulse Resp BP Pulse Ox 02/12/22 06:13 97.9 F 66 17 124/69 97 02/12/22 03:49 80 16 140/89 97 02/12/22 01:55 85 16 94 L 02/11/22 22:28 84 16 128/80 98 02/11/22 21:03 88 02/11/22 20:46 97.6 F 88 16 147/99 99 Intake and Output 02/11/22 02/12/22 02/12/22 22:59 06:59 14:59 Other: Weight 106.594 kg Results 02/12/22 03:49 02/12/22 03:49 Cardiac Enzymes 02/11/22 02/11/22 02/11/22 Range/Units 21:08 21:08 23:43 AST 19 (14-36) U/L Troponin I <0.012 <0.012 (0.000-0.034) ng/mL 02/12/22 Range/Units 03:49 AST (14-36) U/L Troponin I <0.012 (0.000-0.034) ng/mL Coagulation 02/11/22 Range/Units 21:08 PT 10.8 (9.0-12.0) sec APTT 24.0 (22.0-30.0) sec CBC 02/11/22 02/12/22 Range/Units 21:08 03:49 WBC 8.4 7.6 (3.8-10.6) k/uL RBC 4.80 4.69 (3.80-5.40) m/uL Hgb 14.0 14.1 (11.4-16.0) gm/dL Hct 41.3 40.5 (34.0-46.0) % Plt Count 233 209 (150-450) k/uL Comprehensive Metabolic Panel 02/11/22 02/12/22 Range/Units 21:08 03:49 Sodium 136 L 136 L (137-145) mmol/L Potassium 4.2 3.7 (3.5-5.1) mmol/L Chloride 104 107 (98-107) mmol/L Carbon Dioxide 27 23 (22-30) mmol/L BUN 15 14 (7-17) mg/dL Creatinine 0.70 0.62 (0.52-1.04) mg/dL Glucose 106 H 108 H (74-99) mg/dL Calcium 9.2 8.9 (8.4-10.2) mg/dL AST 19 (14-36) U/L ALT 20 (4-34) U/L Alkaline Phosphatase 111 (38-126) U/L Total Protein 6.2 L (6.3-8.2) g/dL Albumin 3.8 (3.5-5.0) g/dL Current Medications Generic Name Dose Route Start Last Admin Trade Name Freq PRN Reason Stop Dose Admin Aspirin 81 mg 02/12/22 09:00 Aspirin 81 Mg PO DAILY [facility] Atorvastatin Calcium 80 mg 02/12/22 21:00 Atorvastatin 80 Mg Tab PO HS [facility] Citalopram Hydrobromide 20 mg 02/12/22 09:00 Citalopram Hydrobromide 20 Mg Tab PO DAILY [facility] Clopidogrel Bisulfate 75 mg 02/12/22 09:00 Clopidogrel 75 Mg Tab PO DAILY [facility] Heparin Sodium (Porcine) 5,000 unit 02/12/22 08:00 02/12/22 08:08 Heparin Sodium,Porcine/Pf 5,000 Unit/0.5 Ml Syringe SQ 5,000 unit Q8HR [facility] Administration Isosorbide Mononitrate 30 mg 02/12/22 09:00 Isosorbide Mononitrate Er 30 Mg Tab.Er.24h PO DAILY [facility] Metoprolol Tartrate 25 mg 02/12/22 09:00 Metoprolol Tartrate 25 Mg Tab PO BID [facility] Naloxone HCl 0.2 mg 02/11/22 23:03 Naloxone 0.4 Mg/Ml 1 Ml Vial IV Q2M PRN Opioid Reversal Intake and Output 02/11/22 02/12/22 02/12/22 22:59 06:59 14:59 Other: Weight 106.594 kg 02/12/22 03:49 02/12/22 03:49
--- NOTE | 2022-02-12 14:46 | P.DS ---
Providers Date of admission: 02/11/22 23:05 Expected date of discharge: 02/12/22 Attending physician: Aris Sampson MD Consults: 02/11/22 23:03 Consult Physician Urgent Consulting Provider: [facility] Consult Reason/Comments: acute chest pain, hx microvascular disease Do you want consulting provider notified?: Yes Primary care physician: [facility] Course: The patient is a 46-year-old female with a PMH of coronary artery disease who presented to the emergency room with complaints of chest discomfort. The patient reports that she has been experiencing intermittent chest discomfort over the past 2-3 days, aching and pressure like in nature, with associated palpitations and occasional shortness of breath. The patient states that she had similar symptoms in the past when she had presented to the emergency room in 10/2022 and was diagnosed with microvascular disease with maximal medical therapy initiated. The patient reports that her pain resolved after receiving supplemental nitroglycerin and noted being pain free at the time of interview. She reported occasional mild palpitations but denied any additional complaints. That experiencing lower extremity swelling, or pain. She denied fever, chills, cough. Chest x-ray in the emergency room was unremarkable. Laboratory evaluation revealed a troponin of less than 0.012 with proBNP 21. Troponins were trended and ACS was ruled out. Cardiology was consulted and recommended no further workup. Patient was cleared from a cardiology standpoint. Patient was seen and examined this afternoon. She reports complete resolution of her chest pain. Pertinent studies include chest x-ray. Physical examination: General: non toxic, no distress, appears at stated age, obese Derm: no unusual rashes/lesions, warm Head: atraumatic, normocephalic, symmetric Eyes: EOMI, no lid lag, anicteric sclera, pupils equal round reactive to light ENT: Nose and ears atraumatic Neck: No cervical lymphadenopathy, trachea midline, supple Mouth: no lip lesion, mucus membranes moist Cardiovascular: S1S2 reg, no murmur, positive dorsalis pedis pulse bilateral, no edema Lungs: CTA bilateral, no rhonchi, no rales, no accessory muscle use Abdominal: soft, nontender to palpation, no guarding Ext: muscle strength 5 out of 5 in all 4 extremities grossly, no gross muscle atrophy, no contractures, Neuro: CN II-XI grossly intact, no gross focal neuro deficits Psych: Alert, oriented, appropriate affect Discharge diagnosis: Chest pain, rule out ACS Chronic conditions: Hypertension, dyslipidemia Patient be discharged home with the following instructions: Diet: Cardiac FU PCP within 1-2 days of DC. FU with Cardiology within 1 week of DC. Take all medications as advised. Patient Condition at Discharge: Stable Plan - Discharge Summary New Discharge Prescriptions: New Nitroglycerin Sl Tabs [Nitrostat] 0.4 mg SUBLINGUAL Q5M PRN #100 tab PRN Reason: Chest Pain Continue Citalopram Hydrobromide [CeleXA] 20 mg PO DAILY Metoprolol Tartrate [Lopressor] 25 mg PO BID #180 tab Aspirin 81 mg PO DAILY tab Isosorbide Mononitrate ER [Imdur] 30 mg PO DAILY #90 tab Atorvastatin [Lipitor] 80 mg PO HS #90 tab Clopidogrel [Plavix] 75 mg PO DAILY #90 tab Discharge Medication List Citalopram Hydrobromide [CeleXA] 20 mg PO DAILY 06/23/16 [History] Aspirin 81 mg PO DAILY tab 11/01/21 [Rx] Atorvastatin [Lipitor] 80 mg PO HS #90 tab 11/01/21 [Rx] Clopidogrel [Plavix] 75 mg PO DAILY #90 tab 11/01/21 [Rx] Isosorbide Mononitrate ER [Imdur] 30 mg PO DAILY #90 tab 11/01/21 [Rx] Metoprolol Tartrate [Lopressor] 25 mg PO BID #180 tab 11/01/21 [Rx] Nitroglycerin Sl Tabs [Nitrostat] 0.4 mg SUBLINGUAL Q5M PRN #100 tab 02/12/22 [Rx] Follow up Appointment(s)/Referral(s): Janice Giraldo DO [Primary Care Provider] - 1-2 days Shreyas Kowalski MD [STAFF PHYSICIAN] - 1 Week Activity/Diet/Wound Care/Special Instructions: Diet: Cardiac FU PCP within 1-2 days of DC. FU with Cardiology within 1 week of DC. Take all medications as advised. Discharge Disposition: HOME SELF-CARE
[2022-02-12 16:35] LABS: Amorphous Sediment,Urine Many /hpf; Appearance,Urine Turbid (Clear); Bilirubin,Urine Negative (Negative); Blood,Urine Negative (Negative); Color,Urine Light Orange; Glucose,Urine (UA) Negative (Negative); Ketones,Urine Negative (Negative); Leukocyte Esterase,Urine Negative (Negative); Mucus,Urine Many /hpf; Nitrite,Urine Negative (Negative); PH, Urine 5.5 (5.0-8.0); Protein,Urine Trace (Negative); Specific Gravity,Urine 1.029 (1.001-1.035); Urobilinogen,Urine <2.0 mg/dL (<2.0)
[2022-02-12 16:46] VITALS: BP 127/80; RESP 18; TEMP 98.6
[2022-02-12] MEDS ORDERED: ATORVASTATIN 80 MG TAB PO SCH (21:00)
--- NOTE | 2022-02-24 11:21 | P.CEMON ---
Event monitor shows sinus mechanism with normal heart rates occasional PVC
--- NOTE | 2022-02-25 10:18 | EM ---
72 hour Holter monitor shows sinus mechanism with IVCD Occasional premature beats No other arrhythmias MTDD
== END 2022-02-12 17:00 | disposition home or self-care (01) ==
LOC: EC 20:38 → 6NMEDSUR 23:05
PROVIDERS: ADMIT Internal Medicine; ATTEND Internal Medicine
DX: I25.119 Atherosclerotic heart disease of native coronary artery with unspecified angina pectoris (principal); I11.9 Hypertensive heart disease without heart failure; R00.2 Palpitations; I10 Essential (primary) hypertension; E78.5 Hyperlipidemia, unspecified; H46.9 Unspecified optic neuritis; R22.40 Localized swelling, mass and lump, unspecified lower limb; F41.9 Anxiety disorder, unspecified; Z79.82 Long term (current) use of aspirin; Z79.02 Long term (current) use of antithrombotics/antiplatelets; Z79.899 Other long term (current) drug therapy; Z88.0 Allergy status to penicillin; Z88.1 Allergy status to other antibiotic agents; Z91.018 Allergy to other foods; Z87.442 Personal history of urinary calculi; Z87.19 Personal history of other diseases of the digestive system; Z90.49 Acquired absence of other specified parts of digestive tract; Z90.710 Acquired absence of both cervix and uterus; Z98.51 Tubal ligation status; Z98.891 History of uterine scar from previous surgery; Z98.890 Other specified postprocedural states; Z82.49 Family history of ischemic heart disease and other diseases of the circulatory system
CPT/HCPCS: 96372; 99285; 36415; 93005; 93270; 83880; 80053; 80048; 83735; 84484 ×2; 85025 ×2; 85610; 85730; 81001; 71046; G0378 ×2; J1644

== ENCOUNTER 2022-06-14 11:19 | Emergency (ER) | payer BC ==
[2022-06-14 11:27] VITALS: TEMP 98.9
[2022-06-14] MEDS ORDERED: SODIUM CHLORIDE 0.9% 1,000 ML IV STA (12:00)
[2022-06-14 12:52] LABS: Basophils % (A) 0 %; Eosinophils # (A) 0.3 k/uL (0-0.7); Eosinophils % (A) 4 %; HCT 38.8 % (34.0-46.0); HGB 13.1 gm/dL (11.4-16.0); Lymphocytes # (A) 1.3 k/uL (1.0-4.8); Lymphocytes % (A) 21 %; MCH 28.5 pg (25.0-35.0); MCHC 33.7 g/dL (31.0-37.0); MCV 84.6 fL (80.0-100.0); Mean Platelet Volume 7.7; Monocytes # (A) 0.4 k/uL (0-1.0); Monocytes % (A) 7 %; Neutrophils # (A) 3.9 k/uL (1.3-7.7); Neutrophils % (A) 65 %; Platelet Count 195 k/uL (150-450); RBC 4.59 m/uL (3.80-5.40); RDW 13.7 % (11.5-15.5)
[2022-06-14] MEDS ORDERED: IBUPROFEN 600 MG TAB PO STA (12:52)
[2022-06-14 13:00] LABS: ALT 18 U/L (4-34); AST 19 U/L (14-36); African American GFR (CKD) >90 (>60 ml/min/1.73 sqM); Albumin 3.5 g/dL (3.5-5.0); Alkaline Phosphatase 83 U/L (38-126); Anion Gap 8 mmol/L; Blood Urea Nitrogen 14 mg/dL (7-17); Calcium 8.6 mg/dL (8.4-10.2); Carbon Dioxide 26 mmol/L (22-30); Chloride 103 mmol/L (98-107); Glucose 108 mg/dL (74-99); Lipase 94 U/L (23-300); Non-African American GFR(CKD) >90 (>60 ml/min/1.73 sqM); Potassium 3.8 mmol/L (3.5-5.1); Sodium 137 mmol/L (137-145); Total Bilirubin 0.5 mg/dL (0.2-1.3)
[2022-06-14 13:42] LABS: Appearance,Urine Cloudy (Clear); Bacteria,Urine Few /hpf; Bilirubin,Urine Negative (Negative); Blood,Urine Small (Negative); Color,Urine Yellow; Glucose,Urine (UA) Negative (Negative); Ketones,Urine Negative (Negative); Leukocyte Esterase,Urine Negative (Negative); Mucus,Urine Few /hpf; Nitrite,Urine Negative (Negative); PH, Urine 5.5 (5.0-8.0); Protein,Urine 1+ (Negative); RBC,Urine 3 /hpf (0-5); Specific Gravity,Urine 1.039 (1.001-1.035); Squamous Epithelial Cell,Urine 7 /hpf (0-4); Urobilinogen,Urine <2.0 mg/dL (<2.0); WBC,Urine 2 /hpf (0-5)
--- NOTE | 2022-06-14 13:46 | XR ---
EXAMINATION TYPE: XR chest 2V DATE OF EXAM: 06/14/2022 COMPARISON: 02/11/2022 TECHNIQUE: PA and lateral views submitted. HISTORY: Fever and cough FINDINGS: The lungs are clear and there is no pneumothorax, pleural effusion, or focal pneumonia. Heart size normal and no overt failure. Osseous structures demonstrate hypertrophic and degenerative changes of the spine. IMPRESSION: 1. No acute process.
--- NOTE | 2022-06-14 14:04 | ED ---
Fever HPI - General Chief Complaint: Fever Stated Complaint: Ear Pain/Fever Time Seen by Provider: 06/14/22 11:25 Source: patient Mode of arrival: ambulatory Limitations: no limitations - History of Present Illness Initial Comments: 46-year-old female with past history of hypertension, hyperlipidemia presents the emergency department reporting high fevers, congestion and 1 episode of vomiting. She began having fevers yesterday. She has been alternating taking Motrin and Tylenol. She went to urgent care yesterday who diagnosed her with a left ear infection and placed her on Ceftinir. She did take one dose but continues to have high fevers. She does admit to sick contacts. No chest pain. No abdominal pain. Had one episode of diarrhea. No black or bloody stools. No other alleviating, precipitating or modifying factors - Related Data Home Medications Medication Instructions Recorded Confirmed Citalopram Hydrobromide [CeleXA] 20 mg PO DAILY 06/23/16 02/12/22 Previous Rx's Medication Instructions Recorded Aspirin 81 mg PO DAILY tab 11/01/21 Atorvastatin [Lipitor] 80 mg PO HS #90 tab 11/01/21 Clopidogrel [Plavix] 75 mg PO DAILY #90 tab 11/01/21 Isosorbide Mononitrate ER [Imdur] 30 mg PO DAILY #90 tab 11/01/21 Metoprolol Tartrate [Lopressor] 25 mg PO BID #180 tab 11/01/21 Nitroglycerin Sl Tabs [Nitrostat] 0.4 mg SUBLINGUAL Q5M PRN #100 tab 02/12/22 Nirmatrelvir/Ritonavir [Paxlovid 1 each PO BID #1 each 06/14/22 300-100 mg Pack (Eua)] Ondansetron Odt [Zofran Odt] 4 mg PO Q8HR PRN #15 tab 06/14/22 Allergies Allergy/AdvReac Type Severity Reaction Status Date / Time amoxicillin [From Augmentin] Allergy Rash/Hives Verified 06/14/22 11:27 clavulanic acid Allergy Rash/Hives Verified 06/14/22 11:27 [From Augmentin] Pepper Allergy Rash/Hives Verified 06/14/22 11:27 azithromycin AdvReac Flushed/Sergo Verified 06/14/22 11:27 nt Review of Systems ROS Statement: Those systems with pertinent positive or pertinent negative responses have been documented in the HPI. ROS Other: All systems not noted in ROS Statement are negative. Past Medical History Past Medical History: Hyperlipidemia, Hypertension Additional Past Medical History / Comment(s): childhood seizures, BILATERAL OPTIC NEUROPATHY,BLOOD IN STOOL,,KIDNEY STONE History of Any Multi-Drug Resistant Organisms: None Reported Past Surgical History: Section, Cholecystectomy, Hysterectomy, Tubal Ligation Additional Past Surgical History / Comment(s): C SECTION X 2 , LYSIS OF ADHESIONS Past Anesthesia/Blood Transfusion Reactions: No Reported Reaction Past Psychological History: Anxiety Smoking Status: Never smoker Past Alcohol Use History: None Reported Past Drug Use History: None Reported - Past Family History Father Family Medical History: Deep Vein Thrombosis (DVT) General Exam Limitations: no limitations General appearance: alert, in no apparent distress Head exam: Present: atraumatic, normocephalic, normal inspection Eye exam: Present: normal appearance, PERRL, EOMI. Absent: scleral icterus, conjunctival injection, periorbital swelling ENT exam: Present: normal exam, mucous membranes moist. Absent: other (nasal congestion) Neck exam: Present: normal inspection. Absent: tenderness, meningismus, lymphadenopathy Respiratory exam: Present: normal lung sounds bilaterally. Absent: respiratory distress, wheezes, rales, rhonchi, stridor Cardiovascular Exam: Present: regular rate, normal rhythm, normal heart sounds. Absent: systolic murmur, diastolic murmur, rubs, gallop, clicks GI/Abdominal exam: Present: soft, normal bowel sounds. Absent: distended, tenderness, guarding, rebound, rigid Extremities exam: Present: normal inspection, full ROM, normal capillary refill. Absent: tenderness, pedal edema, joint swelling, calf tenderness Back exam: Present: normal inspection Neurological exam: Present: alert, oriented X3, CN II-XII intact Psychiatric exam: Present: normal affect, normal mood Skin exam: Present: warm, dry, intact, normal color. Absent: rash Course Vital Signs 06/14/22 06/14/22 06/14/22 11:24 13:01 14:38 Temperature 98.9 F Pulse Rate 93 74 86 Respiratory 16 18 22 Rate Blood Pressure 115/72 116/73 117/76 O2 Sat by Pulse 96 95 96 Oximetry Medical Decision Making - Medical Decision Making Was pt. sent in by a medical professional or institution (Dr., PA, MAINFRAME SYSTEMS ADMINISTRATOR, urgent care, hospital, or long-term...) When possible be specific @ -No Did you speak to anyone other than the patient for history (EMS, parent, family, police, friend...)? What history was obtained from this source @ -No Did you review nursing and triage notes (agree or disagree)? Why? @ -I reviewed and agree with nursing and triage notes Were old charts reviewed (outside hosp., previous admission, EMS record, old EKG, old radiological studies, urgent care reports/EKG's, long-term records)? Report findings @ -No old charts were reviewed Differential Diagnosis (chest pain, altered mental status, abdominal pain women, abdominal pain men, vaginal bleeding, weakness, fever, dyspnea, syncope, headache, dizziness, GI bleed, back pain, seizure, CVA, palpatations, mental health, musculoskeletal)? @ -covid, influenza, otitis media, gastroenteritis, viral syndrome EKG interpreted by me (3pts min.). @ -EKG interpreted by me - see above X-rays interpreted by me (1pt min.). @ -interpreted by me - normal CT interpreted by me (1pt min.). @ -None done U/S interpreted by me (1pt. min.). @ -None done What testing was considered but not performed or refused? (CT, X-rays, U/S, labs)? Why? @ -None What meds were considered but not given or refused? Why? @ -None Did you discuss the management of the patient with other professionals (professionals i.e. SCOTT Figueredo, MAINFRAME SYSTEMS ADMINISTRATOR, lab, RT, psych nurse, social service coordinator, kennel keeper, teacher, chief quality officer, case assembler)? Give summary @ -No Was smoking cessation discussed for >3mins.? @ -No Was critical care preformed (if so, how long)? @ -No Were there social determinants of health that impacted care today? How? (Homelessness, low income, unemployed, alcoholism, drug addiction, transportation, low edu. Level, literacy, decrease access to med. care, [place] [facility], rehab)? @ -No Was there de-escalation of care discussed even if they declined (Discuss DNR or withdrawal of care, Hospice)? DNR status @ -No What co-morbidities impacted this encounter? (DM, HTN, Smoking, COPD, CAD, Cancer, CVA, ARF, Chemo, Hep., AIDS, mental health diagnosis, sleep apnea, morbid obesity)? @ -None Was patient admitted / discharged? Hospital course, mention meds given and route, prescriptions, significant lab abnormalities, going to OR and other perti nerosalind info. @ -Upon arrival patient is placed into room 15. history and physical exam was performed. IV access is established laboratory studies were conducted. Patient does test positive for Covid. Chest x-ray demonstrates no acute process. Patient will be discharged home at this time on Paxlovid and Zofran. Instructed to take the medications as directed and follow-up with her doctor. Return for any new or worsening symptoms. Patient agreeable discharged home stable condition Undiagnosed new problem with uncertain prognosis? @ -Yes Drug Therapy requiring intensive monitoring for toxicity (Heparin, Nitro, Ins ulin, Cardizem)? @ -No Were any procedures done? @ -No Diagnosis/symptom? @ -acute pyrexia, acute covid infection Acute, or Chronic, or Acute on Chronic? @ -acute Uncomplicated (without systemic symptoms) or Complicated (systemic symptoms)? @ -complicated Side effects of treatment? @ -No Exacerbation, Progression, or Severe Exacerbation? @ -No Poses a threat to life or bodily function? How? (Chest pain, [place], [place], pneumonia, PE, COPD, DKA, ARF, appy, cholecystitis, CVA, Diverticulitis, Homicidal, Suicidal, threat to staff... and all critical care pts) @ -No - Lab Data Result diagrams: 06/14/22 12:37 06/14/22 12:37 Lab Results 06/14/22 06/14/22 06/14/22 Range/Units 12:37 12:37 12:37 WBC 6.0 (3.8-10.6) k/uL RBC 4.59 (3.80-5.40) m/uL Hgb 13.1 (11.4-16.0) gm/dL Hct 38.8 (34.0-46.0) % MCV 84.6 (80.0-100.0) fL MCH 28.5 (25.0-35.0) pg MCHC 33.7 (31.0-37.0) g/dL RDW 13.7 (11.5-15.5) % Plt Count 195 (150-450) k/uL MPV 7.7 Neutrophils % 65 % Lymphocytes % 21 % Monocytes % 7 % Eosinophils % 4 % Basophils % 0 % Neutrophils # 3.9 (1.3-7.7) k/uL Lymphocytes # 1.3 (1.0-4.8) k/uL Monocytes # 0.4 (0-1.0) k/uL Eosinophils # 0.3 (0-0.7) k/uL Basophils # 0.0 (0-0.2) k/uL Sodium 137 (137-145) mmol/L Potassium 3.8 (3.5-5.1) mmol/L Chloride 103 (98-107) mmol/L Carbon Dioxide 26 (22-30) mmol/L Anion Gap 8 mmol/L BUN 14 (7-17) mg/dL Creatinine 0.68 (0.52-1.04) mg/dL Est GFR (CKD-EPI)AfAm >90 (>60 ml/min/1.73 sqM) Est GFR (CKD-EPI)NonAf >90 (>60 ml/min/1.73 sqM) Glucose 108 H (74-99) mg/dL Plasma Lactic Acid Chay 1.2 (0.7-2.0) mmol/L Calcium 8.6 (8.4-10.2) mg/dL Total Bilirubin 0.5 (0.2-1.3) mg/dL AST 19 (14-36) U/L ALT 18 (4-34) U/L Alkaline Phosphatase 83 (38-126) U/L Total Protein 6.0 L (6.3-8.2) g/dL Albumin 3.5 (3.5-5.0) g/dL Lipase 94 (23-300) U/L Urine Color Urine Appearance (Clear) Urine pH (5.0-8.0) Ur Specific [place] (1.001-1.035) Urine Protein (Negative) Urine Glucose (UA) (Negative) Urine Ketones (Negative) Urine Blood (Negative) Urine Nitrite (Negative) Urine Bilirubin (Negative) Urine Urobilinogen (<2.0) mg/dL Ur Leukocyte Esterase (Negative) Urine RBC (0-5) /hpf Urine WBC (0-5) /hpf Ur Squamous Epith Cells (0-4) /hpf Urine Bacteria (None) /hpf Urine Mucus (None) /hpf Influenza Type A (PCR) (Not Detectd) Influenza Type B (PCR) (Not Detectd) RSV (PCR) (Not Detectd) SARS-CoV-2 (PCR) (Not Detectd) 06/14/22 06/14/22 Range/Units 12:37 13:00 WBC (3.8-10.6) k/uL RBC (3.80-5.40) m/uL Hgb (11.4-16.0) gm/dL Hct (34.0-46.0) % MCV (80.0-100.0) fL MCH (25.0-35.0) pg MCHC (31.0-37.0) g/dL RDW (11.5-15.5) % Plt Count (150-450) k/uL MPV Neutrophils % % Lymphocytes % % Monocytes % % Eosinophils % % Basophils % % Neutrophils # (1.3-7.7) k/uL Lymphocytes # (1.0-4.8) k/uL Monocytes # (0-1.0) k/uL Eosinophils # (0-0.7) k/uL Basophils # (0-0.2) k/uL Sodium (137-145) mmol/L Potassium (3.5-5.1) mmol/L Chloride (98-107) mmol/L Carbon Dioxide (22-30) mmol/L Anion Gap mmol/L BUN (7-17) mg/dL Creatinine (0.52-1.04) mg/dL Est GFR (CKD-EPI)AfAm (>60 ml/min/1.73 sqM) Est GFR (CKD-EPI)NonAf (>60 ml/min/1.73 sqM) Glucose (74-99) mg/dL Plasma Lactic Acid Chay (0.7-2.0) mmol/L Calcium (8.4-10.2) mg/dL Total Bilirubin (0.2-1.3) mg/dL AST (14-36) U/L ALT (4-34) U/L Alkaline Phosphatase (38-126) U/L Total Protein (6.3-8.2) g/dL Albumin (3.5-5.0) g/dL Lipase (23-300) U/L Urine Color Yellow Urine Appearance Cloudy H (Clear) Urine pH 5.5 (5.0-8.0) Ur Specific [place] 1.039 H (1.001-1.035) Urine Protein 1+ H (Negative) Urine Glucose (UA) Negative (Negative) Urine Ketones Negative (Negative) Urine Blood Small H (Negative) Urine Nitrite Negative (Negative) Urine Bilirubin Negative (Negative) Urine Urobilinogen <2.0 (<2.0) mg/dL Ur Leukocyte Esterase Negative (Negative) Urine RBC 3 (0-5) /hpf Urine WBC 2 (0-5) /hpf Ur Squamous Epith Cells 7 H (0-4) /hpf Urine Bacteria Few H (None) /hpf Urine Mucus Few H (None) /hpf Influenza Type A (PCR) Not Detected (Not Detectd) Influenza Type B (PCR) Not Detected (Not Detectd) RSV (PCR) Not Detected (Not Detectd) SARS-CoV-2 (PCR) Detected A (Not Detectd) - EKG Data EKG Comments: EKG demonstrates sinus rhythm with a rate of 84. NC 151. QRS 78. QTC of 382. No acute ST segment elevations or depressions Disposition Clinical Impression: Cough, COVID-19, Fever Disposition: HOME SELF-CARE Condition: Stable Instructions (If sedation given, give patient instructions): Coronavirus Disease 2019 (COVID-19) Additional Instructions: Please follow-up with your primary care doctor. Alternate taking Motrin and Tylenol every 4 hours for fever. Return for any new or worsening symptoms Prescriptions: Nirmatrelvir/Ritonavir [Paxlovid 300-100 mg Pack (Eua)] 1 each PO BID #1 each Ondansetron Odt [Zofran Odt] 4 mg PO Q8HR PRN #15 tab PRN Reason: Nausea Is patient prescribed a controlled substance at d/c from ED?: No Referrals: Janice Giraldo DO [Primary Care Provider] - 1-2 days Time of Disposition: 14:12
[2022-06-14 14:44] VITALS: BP 117/76; PULSE 86; RESP 22
== END 2022-06-14 14:45 | disposition home or self-care (01) ==
LOC: EC 11:19
DX: U07.1 COVID-19 (principal); I10 Essential (primary) hypertension; F41.9 Anxiety disorder, unspecified; Z88.0 Allergy status to penicillin; Z88.1 Allergy status to other antibiotic agents; Z91.018 Allergy to other foods; Z79.899 Other long term (current) drug therapy
CPT/HCPCS: 36415; 71046; 80053; 81001; 83605; 83690; 85025; 87636; 93005; 96360; 96361; 99284

== ENCOUNTER 2023-07-09 07:40 | Emergency (ER) | payer BC ==
--- NOTE | 2023-07-09 08:18 | ED ---
Extremity Problem HPI - General Chief complaint: Extremity Problem,Nontraumatic Stated complaint: feet pain and swelling Time Seen by Provider: 07/09/23 08:17 Source: patient, RN notes reviewed Mode of arrival: ambulatory Limitations: no limitations - History of Present Illness Initial comments: 47-year-old female presented to the ER with a chief complaint of bilateral heel pain. Patient reports this has been ongoing for the past 6 months. She describes her pain as a burning/stabbing sensation that is worse in the morning and with ambulation. 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 She has been taking [id number] ibuprofen and Tylenol with mild relief. She denies any known traumas, bruising, redness, paresthesias, calf tenderness, shortness of breath, fevers, chest pain. - Related Data Home Medications Medication Instructions Recorded Confirmed Citalopram Hydrobromide [CeleXA] 20 mg PO DAILY 06/23/16 02/12/22 Previous Rx's Medication Instructions Recorded Aspirin 81 mg PO DAILY tab 11/01/21 Atorvastatin [Lipitor] 80 mg PO HS #90 tab 11/01/21 Clopidogrel [Plavix] 75 mg PO DAILY #90 tab 11/01/21 Isosorbide Mononitrate ER [Imdur] 30 mg PO DAILY #90 tab 11/01/21 Metoprolol Tartrate [Lopressor] 25 mg PO BID #180 tab 11/01/21 Nitroglycerin Sl Tabs [Nitrostat] 0.4 mg SUBLINGUAL Q5M PRN #100 tab 02/12/22 Nirmatrelvir/Ritonavir [Paxlovid 1 each PO BID #1 each 06/14/22 300-100 mg Pack (Eua)] Ondansetron Odt [Zofran Odt] 4 mg PO Q8HR PRN #15 tab 06/14/22 Allergies Allergy/AdvReac Type Severity Reaction Status Date / Time amoxicillin [From Augmentin] Allergy Rash/Hives Verified 07/09/23 08:02 clavulanic acid Allergy Rash/Hives Verified 07/09/23 08:02 [From Augmentin] Pepper Allergy Rash/Hives Verified 07/09/23 08:02 azithromycin AdvReac Flushed/Sergo Verified 07/09/23 08:02 nt Review of Systems ROS Statement: Those systems with pertinent positive or pertinent negative responses have been documented in the HPI. ROS Other: All systems not noted in ROS Statement are negative. Past Medical History Past Medical History: Hyperlipidemia, Hypertension Additional Past Medical History / Comment(s): childhood seizures, BILATERAL OPTIC NEUROPATHY,BLOOD IN STOOL,,KIDNEY STONE History of Any Multi-Drug Resistant Organisms: None Reported Past Surgical History: Section, Cholecystectomy, Hysterectomy, Tubal Ligation Additional Past Surgical History / Comment(s): C SECTION X 2 , LYSIS OF ADHESIONS Past Anesthesia/Blood Transfusion Reactions: No Reported Reaction Past Psychological History: Anxiety Smoking Status: Never smoker Past Alcohol Use History: None Reported Past Drug Use History: None Reported - Past Family History Father Family Medical History: Deep Vein Thrombosis (DVT) General Exam Limitations: no limitations General appearance: alert, in no apparent distress Respiratory exam: Present: normal lung sounds bilaterally. Absent: respiratory distress, wheezes, rales, rhonchi, stridor Cardiovascular Exam: Present: regular rate, normal rhythm, normal heart sounds. Absent: systolic murmur, diastolic murmur, rubs, gallop, clicks Extremities exam: Present: normal inspection, full ROM, tenderness (Mild tenderness to bilateral heel. Full active range of motion. No erythema, redness or rashes. 2+ bilateral dorsalis pedis pulse.), normal capillary refill. Absent: pedal edema, joint swelling, calf tenderness Neurological exam: Present: alert, oriented X3, CN II-XII intact Skin exam: Present: warm, dry, intact, normal color. Absent: rash Course Vital Signs 07/09/23 07:58 Temperature 98.7 F Pulse Rate 86 Respiratory 16 Rate Blood Pressure 134/87 O2 Sat by Pulse 97 Oximetry Medical Decision Making - Medical Decision Making Was pt. sent in by a medical professional or institution (, PA, LIME KILN TENDER, urgent care, hospital, or fpc...) When possible be specific @ -No Did you speak to anyone other than the patient for history (EMS, parent, family, police, friend...)? What history was obtained from this source @ -No Did you review nursing and triage notes (agree or disagree)? Why? @ -I reviewed and agree with nursing and triage notes Were old charts reviewed (outside hosp., previous admission, EMS record, old EKG, old radiological studies, urgent care reports/EKG's, fpc records)? Report findings @ -No old charts were reviewed Differential Diagnosis (chest pain, altered mental status, abdominal pain women, abdominal pain men, vaginal bleeding, weakness, fever, dyspnea, syncope, headache, dizziness, GI bleed, back pain, seizure, CVA, palpatations, mental health, musculoskeletal)? @ -Differential Musculoskeletal: Muscular strain, contusion, ligament sprain, fracture, arthritis, septic arthritis, bursitis, cellulitis, muscle spasm, nerve compression, DVT, arterial occlusion, herpes zoster, electrolyte abnormality, tumor.... This is not meant to be in all inclusive list EKG interpreted by me (3pts min.). @ -None X-rays interpreted by me (1pt min.). @ -None done CT interpreted by me (1pt min.). @ -None done U/S interpreted by me (1pt. min.). @ -None done What testing was considered but not performed or refused? (CT, X-rays, U/S, labs)? Why? @ -None What meds were considered but not given or refused? Why? @ -None Did you discuss the management of the patient with other professionals (professionals i.e. , PA, LIME KILN TENDER, lab, RT, psych nurse, social service agency director, donor services specialist, teacher, weapons officer naval activity, case checker)? Give summary @ -No Was smoking cessation discussed for >3mins.? @ -No Was critical care preformed (if so, how long)? @ -No Were there social determinants of health that impacted care today? How? (Homelessness, low income, unemployed, alcoholism, drug addiction, transportation, low edu. Level, literacy, decrease access to med. care, detention, rehab)? @ -No Was there de-escalation of care discussed even if they declined (Discuss DNR or withdrawal of care, Hospice)? DNR status @ -No What co-morbidities impacted this encounter? (DM, HTN, Smoking, COPD, CAD, Cancer, CVA, ARF, Chemo, Hep., AIDS, mental health diagnosis, sleep apnea, morbid obesity)? @ -None Was patient admitted / discharged? Hospital course, mention meds given and route, prescriptions, significant lab abnormalities, going to OR and other pertinent info. @ -Discharge. 47-year-old female presented to the ER with a chief complaint of bilateral foot pain. This been an ongoing problem for 6 months. History and physical exam completed. Vitals stable. Physical exam significant for mild tenderness to bilateral heels. Bilateral lower extremities neurovascular intact. Patient has full active range of motion. No erythema, ecchymosis, wounds or rashes. No calf tenderness/edema or pedal edema noted. I believe this to be plantars fasciitis as patient does report pain as burning/stabbing and is worse in the morning. I advised patient on exercises and to follow-up with orthopedics for further evaluation, referral given. Patient refused analgesic medication. Return parameters discussed. Patient discharged in stable condition. Patient verbally expressed understanding and agreement with care plan. Case discussed with ED attending, Dr. Iraheta. Undiagnosed new problem with uncertain prognosis? @ -No Drug Therapy requiring intensive monitoring for toxicity (Heparin, Nitro, Insulin, Cardizem)? @ -No Were any procedures done? @ -No Diagnosis/symptom? @ -Plantar fasciitis Acute, or Chronic, or Acute on Chronic? @ -Acute Uncomplicated (without systemic symptoms) or Complicated (systemic symptoms)? @ -Uncomplicated Side effects of treatment? @ -No Exacerbation, Progression, or Severe Exacerbation? @ -No Poses a threat to life or bodily function? How? (Chest pain, [place], [place], pneumonia, PE, COPD, DKA, ARF, appy, cholecystitis, CVA, Diverticulitis, Homicidal, Suicidal, threat to staff... and all critical care pts) @ -No Disposition Clinical Impression: Plantar fasciitis Disposition: HOME SELF-CARE Condition: Stable Instructions (If sedation given, give patient instructions): Plantar Fasciitis (ED), Plantar Fasciitis Exercises (ED) Additional Instructions: Continue with Tylenol and Motrin for pain control. I recommend you do exercises daily. Follow-up with orthopedics for further evaluation. Return to the ER for any new or worsening concerns. Is patient prescribed a controlled substance at d/c from ED?: No Referrals: Janice Giraldo DO [Primary Care Provider] - 1-2 days Bart Arellano MD [STAFF PHYSICIAN] - 1-2 days Time of Disposition: 08:18
[2023-07-09 08:25] VITALS: BP 134/87; PULSE 86; RESP 16; TEMP 98.7
== END 2023-07-09 08:42 | disposition home or self-care (01) ==
LOC: EC 07:40
DX: M72.2 Plantar fascial fibromatosis (principal); Z88.0 Allergy status to penicillin; Z88.1 Allergy status to other antibiotic agents
CPT/HCPCS: 99282

== ENCOUNTER → 2024-03-06 | Outpatient (CLI) | payer BC ==
--- NOTE | 2024-03-06 10:22 | MM ---
Reason for Exam: Screening (asymptomatic). Last mammogram was performed 2 year(s) and 5 month(s) ago. Patient History: Menarche at age 15. First Full-Term at age 35. Late child-bearing (after 32). Left ovary removed at age 38. Hysterectomy at age 38. Maternal grandmother had breast cancer, age 55. Risk Values: Haylee 5 year model risk: 1.2%. NCI Lifetime model risk: 12.8%. Prior Study Comparison: 09/11/2021 Bilateral MG 3D screening mammo w/cad, [facility]. Tissue Density: The breasts are heterogeneously dense, which may obscure small masses. Findings: Analyzed By CAD. Right breast: There is no suspicious group of microcalcifications or new suspicious mass. Left breast: There is no suspicious group of microcalcifications or new suspicious mass. Overall Assessment: Negative, BI-RAD 1 Management: Screening Mammogram of both breasts in [address] [facility] will attempt to contact patient to return for supplemental views and ultrasound if indicated. Patient should continue monthly self-breast exams. A clinical breast exam by your physician is recommended on an annual basis. This exam should not preclude additional follow-up of suspicious palpable abnormalities. Note on Haylee scores and lifetime risk: 1. A Haylee score greater than 3% is considered moderate risk. If this is the case, consider specialist referral to assess eligibility for a risk reducing agent. 2. If overall lifetime risk for the development of breast cancer is 20% or higher, the patient may qualify for future screening with alternating mammogram and breast MRI. [facility], , 03/06/2024 10:20 AM. Electronically signed and approved by: Vernon Lanier DO
--- NOTE | 2024-03-06 10:44 | US ---
EXAMINATION TYPE: US transvaginal DATE OF EXAM: 03/06/2024 COMPARISON: CT abdomen and pelvis 05/09/2020, 08/12/2018, pelvic ultrasound 12/16/2015 CLINICAL INDICATION: Female, 48 years old with history of Z80.41 FAM HX OVARY CA; Family Hx ovarian cancer, history of left ovarian cyst, uterus and right ovary removed. TECHNIQUE: Transvaginal (TV). Transvaginal grayscale sonographic images of the pelvis were acquired. Doppler imaging: Not performed. FINDINGS: Date of LMP: Unknown EXAM MEASUREMENTS: Uterus: Surgically absent Endometrial Stripe: Surgically absent Right Ovary: Surgically absent Left Ovary: 3.3 x 2.6 x 1.5 cm 1. Uterus: Surgically absent 2. Endometrium: Surgically absent 3. Right Ovary: Surgically absent 4. Left Ovary: Anechoic lesions 1.8 x 1.8 x 1.6 cm 5. Bilateral Adnexa: wnl 6. Posterior cul-de-sac: No free fluid The uterus and endometrium are surgical absent. The vaginal cuff appears unremarkable. The right ovar y surgically absent. The left ovary demonstrates a dominant follicle measuring up to 1.8 cm. Normal c olor flow to the left ovary. No free fluid. IMPRESSION: Postsurgical changes from hysterectomy and right oophorectomy. Dominant left ovarian follicle otherwi se unremarkable appearance of the left ovary. [facility], , 03/06/2024 10:42 AM
== END | disposition home or self-care (01) ==
LOC: RADMAMWWP 09:39
PROVIDERS: ATTEND Family Medicine
DX: Z12.31 Encounter for screening mammogram for malignant neoplasm of breast (principal); R92.333 Mammographic heterogeneous density, bilateral breasts; Z80.41 Family history of malignant neoplasm of ovary; Z80.3 Family history of malignant neoplasm of breast; Z90.721 Acquired absence of ovaries, unilateral; Z90.710 Acquired absence of both cervix and uterus
CPT/HCPCS: 76830; 77063; 77067